=== PATIENT | female | born 1960 | race Caucasian/White ===

== ENCOUNTER 2018-10-07 09:43 | Emergency (ER) | payer MEDICARE, OTHER ==
[2018-10-07 09:55] VITALS: BP 134/84
--- NOTE | 2018-10-07 10:02 | UC ---
Lower Extremity/Ankle HPI - HPI Summary HPI Summary: 58 y/o female presents to the urgent care c/o 1 month hx of right leg swelling and discoloration with increased pain - History of Current Complaint Chief Complaint: UCLowerExtremity Stated Complaint: R LEG FLUID, TENDERNESS Time Seen by Provider: 10/07/18 10:01 Hx Obtained From: Patient Onset/Duration: Gradual Onset, Lasting Weeks - 4 weeks, Still Present Severity Initially: Mild Severity Currently: Moderate Pain Intensity: 9 Pain Scale Used: 0-10 Numeric Aggravating Factor(s): Standing, Ambulation Alleviating Factor(s): Rest, Elevation, OTC Meds Able to Bear Weight: Yes - Risk Factors Gout Risk Factors: Age Over 40, Diabetes, Hypertension DVT Risk Factors: Negative Septic Arthritis Risk Factor: Negative - Allergies/Home Medications Allergies/Adverse Reactions: Allergies Allergy/AdvReac Type Severity Reaction Status Date / Time ciprofloxacin [From Cipro] Allergy Hives Verified 10/07/18 09:56 Penicillins Allergy ink Verified 10/07/18 09:55 Home Medications: Home Medications Hydrocodone-Acetamin 7.5-300 1 tab PO DAILY 10/07/18 [History Confirmed 10/07/18 ] PMH/Surg Hx/FS Hx/Imm Hx Previously Healthy: Yes Endocrine History: Diabetes - PRE-DM type II Cardiovascular History: Hypertension GI/ History: Diverticulitis Other Neurological History: Vertigo - Surgical History Surgical History: Yes Surgery Procedure, Year, and Place: lap band,vein stripping,brst reduction - Family History Known Family History: Positive: Cardiac Disease Family History: Cancer - Social History Occupation: Unemployed Lives: With Family Alcohol Use: None Substance Use Type: None Smoking Status (MU): Heavy Every Day Tobacco Smoker Review of Systems All Other Systems Reviewed And Are Negative: Yes Constitutional: Positive: Negative Skin: Positive: Rash - RT lower leg w/ redness , warm to touch and painful w/ crusting yellowish discharge Eyes: Positive: Negative ENT: Positive: Negative Respiratory: Positive: Negative Cardiovascular: Positive: Negative Gastrointestinal: Positive: Negative Genitourinary: Positive: Negative Motor: Positive: Negative Neurovascular: Positive: Negative Musculoskeletal: Positive: Other: - RT lower leg pain s/p insect bite Neurological: Positive: Negative Psychological: Positive: Negative Is Patient Immunocompromised?: No Physical Exam - Summary Physical Exam Summary: Vital Signs Reviewed: Yes General: well developed, well nourished obese female sitting in the examining table w/o any apparent distress. Eyes: Positive: Conjunctiva Clear - PERRLA, EOMI ENT: Positive: Normal ENT inspection, Hearing grossly normal, Pharynx normal, TMs normal Neck: Positive: Supple, Nontender, No Lymphadenopathy Respiratory: Positive: Chest nontender, Lungs clear, Normal breath sounds Cardiovascular: Positive: RRR, No Murmur, Pulses Normal Abdomen Description: Positive: Nontender, No Organomegaly, Soft. Negative: CVA Tenderness (R), CVA Tenderness (L) Bowel Sounds: Positive: Present Musculoskeletal: Positive: Strength Intact, ROM Intact, No Edema Neurological Exam: Normal Psychological Exam: Normal Skin: Positive: rashes - RT ventral side of Rt forearm w/ erythematous patch w / indistinct borders, warm to touch, swelling and tender to palpation. Triage Information Reviewed: Yes Vital Signs: Initial Vital Signs Temp 96.7 F 10/07/18 09:50 Pulse 79 10/07/18 09:50 Resp 17 10/07/18 09:50 BP 134/84 10/07/18 09:50 Pulse Ox 97 10/07/18 09:50 Lower Extremity Course/Dx - Differential Dx/Diagnosis Differential Diagnosis/HQI/PQRI: Cellulitis, Compartment Syndrome, DVT, Infection, Osteomyelitis, Phlebitis, Sprain Provider Diagnosis: Cellulitis of right lower leg Discharge - Sign-Out/Discharge Documenting (check all that apply): Patient Departure - d/c home All imaging exams completed and their final reports reviewed: No Studies - Discharge Plan Condition: Stable Disposition: HOME Prescriptions: DOXYcycline CAP(*) [DOXYcycline 100MG CAP(*)] 100 mg PO BID #20 cap Mupirocin 2% OINT* [Bactroban 2 % Oint*] 1 applic TOPICAL BID #1 tube Patient Education Materials: Cellulitis (ED) Referrals: [facility] [Outside] - 2 Days Additional Instructions: 1-Please take full course of Antibiotic. 2- If redness and swelling doubles in size after 48 hrs of taking antibiotic and fever develops please go to the ER immediately. 3-Avoid standing for long periods of time, keep it elevated and keep wound clean and dry. Apply Bactroban oint as directed, 4-Please F/u with your PCP in 2-3 days to make sure lower leg is improving. - Billing Disposition and Condition Condition: STABLE Disposition: Home
== END 2018-10-07 10:42 | disposition home or self-care (01) ==
LOC: UCEAST 09:43
DX: L03.115 Cellulitis of right lower limb (principal); Z88.1 Allergy status to other antibiotic agents; Z88.0 Allergy status to penicillin; F17.200 Nicotine dependence, unspecified, uncomplicated
CPT/HCPCS: 99202; G0463

== ENCOUNTER 2018-12-28 14:06 | Inpatient (IN) | payer MEDICARE, OTHER ==
[2018-12-28 17:41] LABS: ABS Basophils 0.1 10^3/ul (0-0.2); ABS Eosinophils 0.1 10^3/ul (0-0.6); ABS Lymphocytes 2.4 10^3/ul (1.0-4.8); ABS Monocytes 0.7 10^3/ul (0-0.8); ABS Neutrophils 12.9 10^3/ul (1.5-7.7); ABS Nucleated RBC 0 10^3/ul; Eosinophil % 0.5 %; Hematocrit 46 % (35-47); Hemoglobin 15.3 g/dl (12.0-16.0); Lymphocyte % 14.9 %; Mean Corpuscular HGB Conc 34 g/dl (31-36); Mean Corpuscular Hemoglobin 31 pg (27-31); Mean Corpuscular Volume 92 fL (80-97); Mean Platelet Volume 7.6 fL (7.4-10.4); Nucleated Red Blood Cells % 0; Platelet Count 322 10^3/ul (150-450); Red Blood Count 4.94 10^6/ul (4.00-5.40); Red Cell Distribution Width 14 % (10.5-15); White Blood Count 16.2 10^3/ul (3.5-10.8)
[2018-12-28 17:54] LABS: Activated Partial Thrombo Time 34.1 seconds (26.0-36.3); INR 0.95 (0.77-1.02)
[2018-12-28 17:55] LABS: Albumin 4.3 g/dL (3.2-5.2); Albumin/Globulin Ratio 1.4 (1-3); BUN/Creatinine Ratio 17.7 (8-20); Calcium 9.7 mg/dL (8.6-10.3); EGFR African American 118.8 (>60); EGFR Non-African American 98.2 (>60); Potassium 4.3 mmol/L (3.5-5.0); Total Bilirubin 0.6 mg/dL (0.2-1.0); Total Protein 7.3 g/dL (6.4-8.9)
[2018-12-28 19:25] LABS: Urine Appearance Cloudy; Urine Bacteria Absent (Absent); Urine Bilirubin Negative (Negative); Urine Blood 2+ (Negative); Urine Color Yellow; Urine Glucose Negative (Negative); Urine Ketones Negative (Negative); Urine Nitrite Negative (Negative); Urine Protein Negative (Negative); Urine Red Blood Cell 3+(>10/hpf) (Absent); Urine Specific Gravity 1.023 (1.010-1.030); Urine Squamous Epithelial Cell Present (Absent); Urine Urobilinogen Negative (Negative); Urine White Blood Cell Trace(0-5/hpf) (Absent)
[2018-12-28] MEDS ORDERED: Morphine VIAL* 10 MG/ML 1 ML VIAL IV ONE ×2 (19:41→22:41)
[2018-12-28] MEDS ORDERED: Ondansetron INJ* 2 MG/ML VIAL IV ONE (19:41)
[2018-12-28] MEDS ORDERED: NS 0.9% 1000 ML** 1,000 ML IV ONE (19:41)
[2018-12-28] MEDS ORDERED: Iohexol 300* (CONTRAST) 10 ML SDV IV ONE (19:50)
[2018-12-28 20:01] LABS: C Reactive Protein 40.2 mg/L (<8.01)
--- NOTE | 2018-12-28 20:31 | ED ---
Abdominal Pain/Female - HPI Summary HPI Summary: Patient complains of new onset lower abdominal cramping, vaginal bleeding or blood in urine, nausea starting this a.m. Abdominal pain described as new onset , bilateral lower abdomen, constant, rated 9/10. Patient denies fever, cough, sore throat, SLOAN, CP, SOB, V/D, pain with urination, change in BM, vaginal pain or discharge. Medical history is diverticulitis, HTN, DDD, vertigo. Abdominal surgical history includes lap banding. - History of Current Complaint Chief Complaint: EDAbdPain Stated Complaint: ABD PAIN/VAG BLEEDING Time Seen by Provider: 12/28/18 18:11 Hx Obtained From: Patient Onset/Duration: Sudden Onset, Lasting Hours Timing: Constant Severity Initially: Severe Severity Currently: Moderate Pain Intensity: 9 Pain Scale Used: 0-10 Numeric Location: Discrete At: RLQ, Discrete At: LLQ, Suprapubic Radiates: No Character: Burning, Cramping Aggravating Factor(s): Nothing Alleviating Factor(s): Nothing Associated Signs and Symptoms: Positive: Vaginal Bleeding, Nausea Allergies/Adverse Reactions: Allergies Allergy/AdvReac Type Severity Reaction Status Date / Time ciprofloxacin [From Cipro] Allergy Hives Verified 10/07/18 09:56 Penicillins Allergy ink Verified 10/07/18 09:55 PMH/Surg Hx/FS Hx/Imm Hx Endocrine/Hematology History: Denies: Hx Diabetes Cardiovascular History: Denies: Hx Hypertension History: Denies: Hx Renal Disease Sensory History: Denies: Hx Eye Prosthesis Opthamlomology History: Denies: Hx Legally Blind EENT History: Denies: Hx Deafness Neurological History: Denies: Hx Dementia Psychiatric History: Denies: Hx Autism - Surgical History Surgery Procedure, Year, and Place: lap band,vein stripping,brst reduction Infectious Disease History: No Infectious Disease History: Denies: Traveled Outside the [place] in Last 30 Days - Family History Known Family History: Positive: Cardiac Disease Family History: Cancer - Social History Alcohol Use: None Substance Use Type: Reports: None Smoking Status (MU): Heavy Every Day Tobacco Smoker Review of Systems Constitutional: Negative Eyes: Negative ENT: Negative Cardiovascular: Negative Respiratory: Negative Positive: Abdominal Pain, Nausea Positive: hematuria Musculoskeletal: Negative Skin: Negative Neurological: Negative Psychological: Normal All Other Systems Reviewed And Are Negative: Yes Physical Exam - Summary Physical Exam Summary: Minimal pain with palpation of bilateral lower abdomen. Moderate pain with palpation of right upper quadrant, epigastrium and left upper quadrant. Physical exam otherwise unremarkable. Triage Information Reviewed: Yes Vital Signs On Initial Exam: Initial Vitals Temp Pulse Resp BP Pulse Ox 97.7 F 81 16 132/82 95 12/28/18 14:08 12/28/18 14:08 12/28/18 14:08 12/28/18 14:08 12/28/18 14:08 Vital Signs Reviewed: Yes Appearance: Positive: Well-Appearing Skin: Positive: Warm Head/Face: Positive: Normal Head/Face Inspection Eyes: Positive: Normal Neck: Positive: Supple Respiratory/Lung Sounds: Positive: Clear to Auscultation Cardiovascular: Positive: Normal Abdomen Description: Positive: Other: Musculoskeletal: Positive: Normal Neurological: Positive: Normal Psychiatric: Positive: Normal AVPU Assessment: Alert - Rhett Coma Scale Best Eye Response: 4 - Spontaneous Best Motor Response: 6 - Obeys Commands Best Verbal Response: 5 - Oriented Coma Scale Total: 15 Diagnostics - Vital Signs Vital Signs Temp Pulse Resp BP Pulse Ox 12/28/18 20:00 20 12/28/18 16:08 97 F 79 16 145/94 95 12/28/18 14:08 97.7 F 81 16 132/82 95 - Laboratory Lab Results: Lab Results 12/28/18 12/28/18 12/28/18 Range/Units 17:21 17:21 17:21 WBC 16.2 H (3.5-10.8) 10^3/ul RBC 4.94 (4.00-5.40) 10^6/ul Hgb 15.3 (12.0-16.0) g/dl Hct 46 (35-47) % MCV 92 (80-97) fL MCH 31 (27-31) pg MCHC 34 (31-36) g/dl RDW 14 (10.5-15) % Plt Count 322 (150-450) 10^3/ul MPV 7.6 (7.4-10.4) fL Neut % (Auto) 79.7 % Lymph % (Auto) 14.9 % Carver % (Auto) 4.5 % Eos % (Auto) 0.5 % Baso % (Auto) 0.4 % Absolute Neuts (auto) 12.9 H (1.5-7.7) 10^3/ul Absolute Lymphs (auto) 2.4 (1.0-4.8) 10^3/ul Absolute Monos (auto) 0.7 (0-0.8) 10^3/ul Absolute Eos (auto) 0.1 (0-0.6) 10^3/ul Absolute Basos (auto) 0.1 (0-0.2) 10^3/ul Absolute Nucleated RBC 0 10^3/ul Nucleated RBC % 0 INR (Anticoag Therapy) 0.95 (0.77-1.02) APTT 34.1 (26.0-36.3) seconds Sodium 136 (135-145) mmol/L Potassium 4.3 (3.5-5.0) mmol/L Chloride 97 L (101-111) mmol/L Carbon Dioxide 32 (22-32) mmol/L Anion Gap 7 (2-11) mmol/L BUN 11 (6-24) mg/dL Creatinine 0.62 (0.51-0.95) mg/dL Est GFR ( Amer) 118.8 (>60) Est GFR (Non-Af Amer) 98.2 (>60) BUN/Creatinine Ratio 17.7 (8-20) Glucose 132 H (70-100) mg/dL Lactic Acid (0.5-2.0) mmol/L Calcium 9.7 (8.6-10.3) mg/dL Total Bilirubin 0.60 (0.2-1.0) mg/dL AST 14 (13-39) U/L ALT 20 (7-52) U/L Alkaline Phosphatase 70 (34-104) U/L Troponin I 0.00 (<0.04) ng/mL C-Reactive Protein 40.20 H (<8.01) mg/L Total Protein 7.3 (6.4-8.9) g/dL Albumin 4.3 (3.2-5.2) g/dL Globulin 3.0 (2-4) g/dL Albumin/Globulin Ratio 1.4 (1-3) Lipase 11 (11.0-82.0) U/L Urine Color Urine Appearance Urine pH (5-9) Ur Specific Clyde (1.010-1.030) Urine Protein (Negative) Urine Ketones (Negative) Urine Blood (Negative) Urine Nitrate (Negative) Urine Bilirubin (Negative) Urine Urobilinogen (Negative) Ur Leukocyte Esterase (Negative) Urine WBC (Auto) (Absent) Urine RBC (Auto) (Absent) Ur Squamous Epith Cells (Absent) Urine Bacteria (Absent) Urine Glucose (Negative) 12/28/18 12/28/18 Range/Units 19:10 19:58 WBC (3.5-10.8) 10^3/ul RBC (4.00-5.40) 10^6/ul Hgb (12.0-16.0) g/dl Hct (35-47) % MCV (80-97) fL MCH (27-31) pg MCHC (31-36) g/dl RDW (10.5-15) % Plt Count (150-450) 10^3/ul MPV (7.4-10.4) fL Neut % (Auto) % Lymph % (Auto) % Carver % (Auto) % Eos % (Auto) % Baso % (Auto) % Absolute Neuts (auto) (1.5-7.7) 10^3/ul Absolute Lymphs (auto) (1.0-4.8) 10^3/ul Absolute Monos (auto) (0-0.8) 10^3/ul Absolute Eos (auto) (0-0.6) 10^3/ul Absolute Basos (auto) (0-0.2) 10^3/ul Absolute Nucleated RBC 10^3/ul Nucleated RBC % INR (Anticoag Therapy) (0.77-1.02) APTT (26.0-36.3) seconds Sodium (135-145) mmol/L Potassium (3.5-5.0) mmol/L Chloride (101-111) mmol/L Carbon Dioxide (22-32) mmol/L Anion Gap (2-11) mmol/L BUN (6-24) mg/dL Creatinine (0.51-0.95) mg/dL Est GFR ( Amer) (>60) Est GFR (Non-Af Amer) (>60) BUN/Creatinine Ratio (8-20) Glucose (70-100) mg/dL Lactic Acid 1.5 (0.5-2.0) mmol/L Calcium (8.6-10.3) mg/dL Total Bilirubin (0.2-1.0) mg/dL AST (13-39) U/L ALT (7-52) U/L Alkaline Phosphatase (34-104) U/L Troponin I (<0.04) ng/mL C-Reactive Protein (<8.01) mg/L Total Protein (6.4-8.9) g/dL Albumin (3.2-5.2) g/dL Globulin (2-4) g/dL Albumin/Globulin Ratio (1-3) Lipase (11.0-82.0) U/L Urine Color Yellow Urine Appearance Cloudy Urine pH 5.0 (5-9) Ur Specific Clyde 1.023 (1.010-1.030) Urine Protein Negative (Negative) Urine Ketones Negative (Negative) Urine Blood 2+ A (Negative) Urine Nitrate Negative (Negative) Urine Bilirubin Negative (Negative) Urine Urobilinogen Negative (Negative) Ur Leukocyte Esterase Negative (Negative) Urine WBC (Auto) Trace(0-5/hpf) (Absent) Urine RBC (Auto) 3+(>10/hpf) A (Absent) Ur Squamous Epith Cells Present A (Absent) Urine Bacteria Absent (Absent) Urine Glucose Negative (Negative) Result Diagrams: 12/28/18 17:21 12/28/18 17:21 Lab Statement: Any lab studies that have been ordered have been reviewed, and results considered in the medical decision making process. Abdominal Pain Fem Course/Dx - Course Course Of Treatment: Patient complains of new onset lower abdominal cramping, vaginal bleeding or blood in urine, nausea starting this a.m. Abdominal pain described as new onset, bilateral lower abdomen, constant, rated 9/10. Patient denies fever, cough, sore throat, SLOAN, CP, SOB, V/D, pain with urination, change in BM, vaginal pain or discharge. Medical history is diverticulitis, HTN, DDD, vertigo. Abdominal surgical history includes lap banding. Physical exam: Minimal pain with palpation of bilateral lower abdomen. Moderate pain with palpation of right upper quadrant, epigastrium and left upper quadrant. Physical exam otherwise unremarkable. Vital signs within normal limits. WBC 16.2. CRP 40. Labs otherwise unremarkable. Pain and nausea controlled with morphine 4 mg IV and Zofran [address] abdomen and pelvis was positive for appendicitis. Admitted to Dr. Cruz. - Diagnoses Provider Diagnoses: Appendicitis Discharge - Sign-Out/Discharge Documenting (check all that apply): Patient Departure Patient Received Moderate/Deep Sedation with Procedure: No - Discharge Plan Condition: Stable Disposition: HOME Referrals: Ana Maria Victoria MD [Primary Care Provider] - - Billing Disposition and Condition Condition: STABLE Disposition: Home
[2018-12-28] MEDS ORDERED: oxyCODONE TAB* 5 MG TAB PO ONE (21:25)
[2018-12-28] MEDS ORDERED: Piperacillin/Tazobac ADVAN(*) 3.375 GM in NS 0.9% 100 ML* 100 ML IVPB ONE (22:41)
[2018-12-28] MEDS ORDERED: Acetaminophen TAB* 325 MG ONE (23:41)
[2018-12-28] MEDS: Acetaminophen TAB* 325 MG PO PRN (23:42)
[2018-12-29] MEDS: NS 0.9% 1000 ML** 1,000 ML IV SCH ×2 (00:27→21:32)
[2018-12-29] MEDS: Piperacillin/Tazobac ADVAN(*) 3.375 GM in NS 0.9% 100 ML* 100 ML IVPB SCH ×3 (03:11→21:31)
[2018-12-29] MEDS: Morphine VIAL* 4 MG/ML VIAL (1 ml vial) IV PRN ×3 (05:14→08:11)
[2018-12-29] MEDS: Ondansetron INJ* 2 MG/ML VIAL IV PRN (05:20)
[2018-12-29] MEDS ORDERED: Albuterol/Ipratropium NEB.SOL* Albuterol 2.5 MG/Ipratropium 0.5 MG 3 ML INH PRN (08:31)
[2018-12-29] MEDS ORDERED: PROCHLORPERAZINE INJ 5 MG/ML 2 ML VIAL IV PRN (09:00)
[2018-12-29] MEDS ORDERED: oxyCODONE/Acetamin 5/325 MG* TAB PO PRN (09:00)
[2018-12-29] MEDS ORDERED: fentaNYL* 50 MCG/ML 2 ML VIAL (100 MCG VIAL) IV PRN (09:00)
[2018-12-29] MEDS ORDERED: Naloxone* 0.4 MG/ML 1 ML VIAL IV PRN (09:00)
[2018-12-29] MEDS ORDERED: HYDROcodone/ACETAMIN 5-325 MG* 1 TAB PO PRN (09:00)
--- NOTE | 2018-12-29 10:11 | HP ---
CC: Dr. Ana Maria Victoria at the [facility] at [facility], Primary [facility].* HISTORY AND PHYSICAL ADMISSION: DATE OF ADMISSION: 12/29/18 REASON FOR ADMISSION: Right lower quadrant abdominal pain and acute appendicitis. HISTORY OF PRESENT ILLNESS: Ms. Samantha Morris is a morbidly obese 58-year-old woman who yesterday morning developed some generalized abdominal discomfort associated with some nausea. She had no vomiting. She was anorexic over the course of the day, and only ate a banana. Throughout the day, the pain became more localized in the lower abdominal and subsequently to the right lower quadrant. She presented to the emergency room last evening. Here she was noted to be afebrile, but did develop a temperature up to a 101. She is hemodynamically stable. Laboratory workup included a white blood cell count of 16,000 with a normal hemoglobin. She had an elevated C-reactive protein of 40. The rest of her electrolytes, BUN and creatinine, and lactic acid were normal. Her workup included a CT scan of the abdomen and pelvis. I did review these images. These show what appears to be a primary fat containing umbilical hernia. In addition, there are findings consistent with acute appendicitis with a thickened, dilated appendix in the right lower quadrant with some periappendiceal inflammation. There was no evidence of extraluminal air, abscess, or fluid to suggest perforation. She was admitted to the surgical service for further care. Also of note, is that the patient has undergone a laparoscopic gastric band placement, but positioning appeared to be adequate. PAST MEDICAL HISTORY: 1. Morbid obesity. 2. Tobacco abuse. 3. Hypertension. 4. Sleep apnea. PAST SURGICAL HISTORY: Laparoscopic band placement, and two bilateral reduction mammoplasties. MEDICATIONS: Include: 1. Lisinopril/HCTZ 20/12.5 one tablet p.o. daily. 2. Effexor 150 mg daily. 3. Vicodin 1 tab p.o. 4 times a day for back pain. ALLERGIES: She is allergic to CIPROFLOXACIN. She was told as a young person that she was allergic to PENICILLIN, is not sure of the reaction. SOCIAL HISTORY: She lives alone in [place]. She smokes about a pack of cigarettes per day. She does not drink alcohol. She is disabled and presently not working. REVIEW OF SYSTEMS: Cerebrovascular: She give no history of CVA or headaches. Cardiovascular: No chest pain, although she does have some shortness of breath. Pulmonary: Occasional wheezing. She is a smoker. She has sleep apnea. GI: No chronic abdominal discomfort. She has had no change in her bowel habits. : No urgency or hematuria. PHYSICAL EXAMINATION GENERAL: She is a morbidly obese woman, sitting up right in the chair. She is awake, alert, conversive, and quite pleasant. VITAL SIGNS: Temperature 98.6, pulse 86, blood pressure 120/68. HEENT: Oral mucosa is slightly dry. LUNGS: With diminished breath sounds throughout, especially at the bases. She has a few expiratory wheezes. There is no rales or crackles. HEART: Regular rate and rhythm with murmurs, rubs, or gallops. ABDOMEN: Soft, but distended. She is obese. There is a palpable subcutaneous port in the left upper quadrant for the Lap Band. There also appears to be an umbilical or supraumbilical hernia, which is nonreducible and mildly tender. She has tenderness in the right lower quadrant with some voluntary guarding. There is no generalized peritonitis. PSYCHIATRIC: She is awake, alert, and oriented x3. She has normal judgement and insight. IMPRESSION: 1. Acute appendicitis by CT scan. 2. Morbid obesity. 3. Sleep apnea. 4. Hypertension. 5. Tobacco abuse. PLAN: The patient has been admitted to the surgical service for treatment of her acute appendicitis. 1. Laparoscopic appendectomy later this morning. 2. She has been started on IV Zosyn. 3. She will be kept n.p.o. 4. IV fluids have been started. 5. EKG will be obtained. 6. Medical consultation will be obtained this morning for evaluation and optimization of her medical conditions pre and postoperatively. She will most likely require postoperative admission to the hospital due to her associated medical conditions and size and expected postoperative prolonged care. Procedure was discussed with the patient and the risks, but not limited to bleeding, infection, intraabdominal abscess formation, injury to peritoneal and retroperitoneal structures, abscess formation, infection of the existing gastric band necessitating removal in the future, the possibility of an open procedure, placement of a drain, the risks of anesthesia, deep vein thrombosis, and postoperative hospital stays and recovery times were discussed. [id number]/CPS #: [id number] JUAN
[2018-12-29] MEDS ORDERED: Famotidine IV* 10 MG/ML 2 ML (20 mg) ONE (10:32)
[2018-12-29] MEDS ORDERED: fentaNYL* 50 MCG/ML 2 ML VIAL (100 MCG VIAL) ONE ×5 (10:45→15:00)
[2018-12-29] MEDS ORDERED: Midazolam* 1 MG/ML 5 ML VIAL (5 MG) ONE (10:45)
[2018-12-29] MEDS ORDERED: Propofol* 10 MG/ML 20 ML BTL ONE (10:45)
[2018-12-29] MEDS ORDERED: Rocuronium* 10 MG/ML VIAL ONE ×2 (10:46→13:45)
[2018-12-29] MEDS ORDERED: Lidocaine 2% PF * 5 ML VIAL ONE (10:46)
[2018-12-29] MEDS ORDERED: Bupivacaine 0.5% W/EPI SDV* 30 ML VIAL ONE (11:46)
[2018-12-29] MEDS ORDERED: Famotidine IV* 10 MG/ML 2 ML (20 mg) IV SLOW PU ONE (11:59)
[2018-12-29] MEDS ORDERED: Succinylcholine* 20 MG/ML 10 ML VIAL ONE (12:03)
[2018-12-29] MEDS ORDERED: Phenylephrine IV* 40 MCG/ML 10 ML SYRINGE ONE (12:42)
[2018-12-29] MEDS ORDERED: EPHEDrine (Pressors)* 50 MG/ML VIAL ONE (12:49)
--- NOTE | 2018-12-29 14:04 | CONS ---
CONSULTATION REPORT: DATE OF CONSULT: 12/29/18 REASON FOR CONSULT: Perioperative medical management. CHIEF COMPLAINT: Abdominal pain. HISTORY OF PRESENT ILLNESS: This is a 58-year-old female with history of morbid obesity, obstructive sleep apnea, tobacco abuse and hypertension who presented to the emergency department yesterday with right lower quadrant pain and was found to have acute appendicitis. She was admitted to the surgical team and they have a plan to take her to the operating room today, 12/29/18. We were asked to see her for a medical management perioperatively. Regarding her functional capacity, Ms. Morris admits that she occasionally gets short of breath climbing a flight of stairs, but she is able to do so without stopping. She thinks the reason is because "I need to stop smoking." She is able to walk a city block without stopping. She never gets chest pain unless she eats pepperoni. She never gets chest pain with exertion. She has never had an episode of syncope. She has no chest pain at this time. She has no shortness of breath. I saw her in the PACU and she complained of ongoing right lower quadrant pain and feeling ill from not sleeping and eating for 2 days. She is not sure if she has ever had an echocardiogram. She thinks she had a stress test 3 years ago in [place] which was negative. PAST MEDICAL HISTORY: She had a lap band years ago. She has hypertension; obstructive sleep apnea, on CPAP, but she does not know her setting; and she continues to smoke tobacco. 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 She lives in [place]. She smokes one pack per day for the past 30 years. She does not drink alcohol. Her healthcare proxy is her friend, Mickie. REVIEW OF SYSTEMS: She denies syncope, chest pain, palpitations, shortness of breath, orthopnea, headache. She does endorse nausea, abdominal pain and fatigue. PHYSICAL EXAM: Temperature 99.0, heart rate 107, respiratory rate 22, pulse ox 94% on 2 L, blood pressure 158/92. General: Alert, obese female, in no distress. HEENT: Pupils are 2 mm bilaterally and reactive to light. Oral mucosa is very dry. Neck is obese, I am unable to evaluate for JVP due to her neck crepitus. Chest: She is in a regular rate and rhythm with no murmurs. Her lungs are clear anteriorly, she refuses to sit up or roll to the side for me to listen posteriorly due to abdominal pain. Her abdomen is obese and distended. She has an umbilical reducible hernia. She has right lower quadrant tenderness to light and deep palpation and right upper quadrant tenderness to deep palpation with guarding. Extremities: No edema, rashes or ulcers. Neurologic: Her strength is 5/5 in all extremities. She is oriented x3 and appropriate in her cognition. DIAGNOSTIC STUDIES/LAB DATA: White blood cells 16.2, hemoglobin 15.3, platelets 322. INR 0.95. Sodium 136, potassium 4.3, chloride 97, creatinine 0.62, glucose 132, lactic acid 1.5. Troponin 0.00. Lipase 0. Abdomen and pelvis CT from 12/28/18, shows acute appendicitis, moderate adjacent right lower quadrant inflammation. No abscess formation. No free air. No bowel obstruction and a previous gastric lap band procedure with diverticulosis. EKG from this morning, shows normal sinus rhythm, normal axis, normal intervals. No chamber hypertrophy. She has a Q-wave in lead III. She has T- wave inversions in V2, V3, V4 and T-wave flattening in V5 and V6. I have received an old EKG from [facility] which shows unchanged T-wave inversions across the precordium and a Q-wave in lead III as well. In summary, her EKG today is unchanged from an EKG from [facility] from 2013. ASSESSMENT AND PLAN: This is a 58-year-old female with history of obstructive sleep apnea, hypertension, morbid obesity and tobacco use, who presented to the emergency department yesterday with abdominal pain and was found to have acute appendicitis. 1. Perioperative risk evaluation. We ruled out acute coronary syndrome with her EKG which is unchanged from prior EKG. She also had a negative troponin yesterday. She has no chest pain or anginal equivalent at this time. Her RCRI gives her a 1 point, which is below average risk for major adverse cardiac events; however, her NSQIP results in a 0.3% risk for major adverse cardiac events which is slightly above average at 0.2%. However, unfortunately her risk factors including obesity, tobacco use, and SIRS are not modifiable preoperatively and this procedure is urgent, so I would recommend no further cardiac testing preoperatively. I have also received a stress test from [facility] which shows a negative stress test in 2014, this is unrevealing since it was 5 years ago but it is the most recent cardiac evaluation that she has had. We will continue to follow her postoperatively. 2. Obstructive sleep apnea. I would suspect she may need some BiPAP postoperatively after anesthesia, I will defer to Anesthesia for this. I am ordering her CPAP for nighttime. 3. Acute appendicitis. She is on Zosyn and has received volume resuscitation. She is hemodynamically stable. I agree with this management. 4. History of hypertension. Her lisinopril and HCTZ are on hold, this is appropriate in the perioperative period. 5. DVT prophylaxis. I would consider adding subcu heparin if comfortable postoperatively. Thank you for allowing me to participate in the care of this patient. Please call me with any questions or concerns. [id number]/CPS #: [id number] JUAN
[2018-12-29] MEDS ORDERED: Sugammadex * 200 MG/2 ML VIAL IV PUSH ONE (14:48)
[2018-12-29] MEDS ORDERED: Ondansetron INJ* 2 MG/ML VIAL ONE (14:53)
--- NOTE | 2018-12-29 15:06 | BRIEFOPN ---
Brief Operative Note - Surgery Procedures: Procedures OPERATIVE REPORT Pre-op: Acute appendicitis Post-Op: Acute perforated appendicitis with purulent peritonitis, umbilical hernia Procedure:Open appendectomy (after attempted laparoscopic appendectomy) and repair of umbilical hernia Surgeon: MD Nancy Asst: Peck. FOWLER Anes: general with local , Dr. Singleton IVF:2700 cc crystalloid EBL:100 cc Specimen: Appendix Drain: #10 WILIAM Wound: 4 To PACU
[2018-12-29] MEDS ORDERED: Acetaminophen IV 1GM/100ML * 1,000 MG/100 ML VIAL IVPB ONE (15:43)
[2018-12-29] MEDS ORDERED: Ketorolac INJ* 15 MG/ML 1 ML VIAL IV PUSH ONE (15:43)
[2018-12-29] MEDS ORDERED: Acetaminophen IV 1GM/100ML * 100 ML ONE (15:48)
[2018-12-29] MEDS ORDERED: Ketorolac INJ* 30 MG/ML 1 ML VIAL ONE (15:49)
[2018-12-29] MEDS ORDERED: Morphine PCA ADULT* 5 MG/ML 30 ML ONE (16:32)
[2018-12-29] MEDS ORDERED: Naloxone* 0.4 MG/ML 1 ML VIAL IV PUSH PRN (17:47)
[2018-12-29] MEDS ORDERED: NS 0.9% 1000 ML** 1,000 ML IVPB SCH (17:48)
[2018-12-29] MEDS ORDERED: Morphine PCA* 150 MG in PREMIX PCA SCH (18:00)
--- NOTE | 2018-12-29 20:03 | OP ---
CC: Dr. Victoria, [facility] * DATE OF OPERATION: 12/29/18 - ROOM #341 DATE OF : 56 SURGEON: Don Cruz MD MANAGER SECONDARY: JANETH Mesa ANESTHESIOLOGIST: Dr. Singleton. ANESTHESIA: General with local. PRE-OP DIAGNOSIS: Acute appendicitis. POST-OP DIAGNOSES: 1. Acute perforated appendicitis with purulent peritonitis. 2. Umbilical hernia. OPERATIVE PROCEDURE: 1. Open appendectomy (after attempted laparoscopic appendectomy). 2. Open primary repair of umbilical hernia. ESTIMATED BLOOD LOSS: 100 cc. IV FLUIDS: 1500 cc of crystalloid. URINE OUTPUT: Not recorded. SPECIMEN: Appendix. WOUND CLASSIFICATION: IV. DRAINS: #10 WILIAM drain in the right lower quadrant. FINDINGS: The patient had perforated appendix with significant inflammatory response with purulent peritonitis mainly in the right lower quadrant of the abdomen. Due to her size and the amount of inflammation laterally, the procedure was not able to be performed with the laparoscope and this was converted to an open appendectomy. BRIEF HISTORY: Ms. Samantha Morris is a 58-year-old woman presented to the emergency room with 12 to 16 hours of lower abdominal pain. She was noted to have a leukocytosis and a CT scan, which showed acute appendicitis without evidence of abscess, extraluminal air or fluid to suggest perforation. She was admitted to the surgical service and was started on IV antibiotics and kept n.p.o. After appropriate medical consultation, she is being taken to the operating room for an appendectomy. The procedure was discussed with the patient, the risks, but were not limited to bleeding, infection, intraabdominal abscess formation, injury to peritoneal and retroperitoneal structures, possibility of an open procedure, the possibility of infection over her existing lap gastric band, the risks of general anesthesia were all explained. DESCRIPTION OF PROCEDURE: Written informed consent was obtained, the abdomen was marked with indelible ink and preoperative antibiotics were administered. The patient was taken to the operative room and placed in the supine position. Sequential compression devices and a warming blanket were applied. The patient was intubated and anesthesia was administered. The abdomen was prepped and draped in usual sterile fashion. Time-out verification was completed. Initially, a small vertical incision was made just above the umbilicus at the midline and the peritoneal cavity was entered under direct vision. A 12 mm blunt port was inserted and the abdomen was insufflated to 15 mmHg. Upon placing the scope, it was apparent that there was a fat containing incarcerated umbilical hernia. I placed a 5-mm port in the left lower quadrant of the abdomen under direct vision. A second 5-mm port was placed in the right upper quadrant of the abdomen. Initially, I did not feel that I needed to reduce the umbilical hernia which contained omentum and I was able to identify the inflammatory process in the right lower quadrant. There was a significant purulent peritonitis mainly in the right lower quadrant with a bowel that was adherent to the anterior abdominal wall and to each other. Using some blunt dissection, I was able to free up the terminal ileum as it entered the cecum. The cecum was quite distended as was the rest of the bowel and also due to her size that it was a difficult visualizing the lateral abdominal wall to identify the appendix which was difficult to see apparently due to the inflammatory response mainly more laterally and more posterior toward the retroperitoneum. A third 5 mm port was placed in the suprapubic position as we attempted to try to obtain some exposure; however, after multiple attempts at retraction as well as severe different positional attempts, I made a decision to convert to an open procedure as I felt that this was not able to be completed with the laparoscope. Next, a vertical incision was made above the umbilicus and extending down below the umbilicus. The omental fat which was incarcerated up in through the umbilical hernia was then reduced. With proper positioning and appropriate retraction, I was able to identify a severely inflamed indurated appendix, which was retroperitoneal as well as peritoneal and this was bluntly dissected free from the surrounding abdominal wall and retroperitoneum and brought up into view. The mesoappendix was taken sequentially with the LigaSure device. It was evident that there was a small perforation of the proximal third of the appendix and at this point, a right angle clamp was placed at the base of the appendix and this was amputated. A 2-0 silk LigaSure was then placed to tie the appendiceal stump close. Two separate 2-0 silk sutures were then used to invert the appendiceal stump into the cecum as the cecum although mildly inflamed was soft and pliable and held stitches well. Hemostasis was then assured. The right lower quadrant and the remainder of the abdomen was thoroughly irrigated with saline until it was clear as possible. Care was made to identify the terminal ileum and make sure there were no injuries, which there were none. All laparotomy, sponge and needle counts were reported as correct. Next, the hernia sac centered around the umbilicus was then excised with subcutaneous tissue and some of the scar tissue was debrided back to healthy fascia mainly inferiorly. I did undermine anteriorly laterally on both sides to release the fascia to decrease tension on the repair. The midline fascia was then closed with interrupted #1 Vicryl suture. Prior to this, #10 WILIAM drain was placed in the right lower quadrant and extending down in the pelvis and brought up through a separate stab wound in the right lower abdominal wall. This was sutured to the skin with 3-0 Prolene suture. The wound was then packed with a moist gauze and loosely stapled. Dry sterile dressings were applied. The patient tolerated the procedure well, was taken to the recovery room in stable condition. [id number]/[facility] #: [id number] JUAN
[2018-12-29] MEDS: Famotidine IV* 10 MG/ML 2 ML (20 mg) IV SCH (21:01)
[2018-12-29] MEDS: Heparin VIAL(*) 5000 UNITS/ML VIAL (FIVE THOUSAND) SUBCUT SCH (21:51)
[2018-12-30] MEDS: Piperacillin/Tazobac ADVAN(*) 3.375 GM in NS 0.9% 100 ML* 100 ML IVPB SCH ×4 (03:27→23:09)
[2018-12-30] MEDS: Heparin VIAL(*) 5000 UNITS/ML VIAL (FIVE THOUSAND) SUBCUT SCH ×3 (05:06→22:01)
[2018-12-30] MEDS: Famotidine IV* 10 MG/ML 2 ML (20 mg) IV SCH ×2 (05:08→17:40)
[2018-12-30] MEDS: NS 0.9% 1000 ML** 1,000 ML IV SCH ×2 (05:10→21:47)
[2018-12-30 06:57] LABS: Hematocrit 45 % (35-47); Hemoglobin 13.8 g/dl (12.0-16.0); Mean Corpuscular HGB Conc 31 g/dl (31-36); Mean Corpuscular Hemoglobin 31 pg (27-31); Mean Corpuscular Volume 100 fL (80-97); Platelet Count 179 10^3/ul (150-450); Red Blood Count 4.52 10^6/ul (4.00-5.40); Red Cell Distribution Width 16 % (10.5-15); White Blood Count 14.1 10^3/ul (3.5-10.8)
[2018-12-30 07:09] LABS: CO2 Carbon Dioxide 24 mmol/L (22-32); Calcium 8.3 mg/dL (8.6-10.3); Chloride 105 mmol/L (101-111); Sodium 137 mmol/L (135-145)
[2018-12-30 07:14] LABS: BUN/Creatinine Ratio 16.9 (8-20); Blood Urea Nitrogen 10 mg/dL (6-24); EGFR African American 125.8 (>60); Glucose 110 mg/dL (70-100)
[2018-12-30 08:00] LABS: Anion Gap 8 mmol/L (2-11)
[2018-12-30] MEDS ORDERED: Rocuronium* 10 MG/ML VIAL ONE ×2 (10:47→11:40)
[2018-12-30] MEDS ORDERED: fentaNYL* 50 MCG/ML 5 ML VIAL (250 MCG VIAL) ONE (10:47)
[2018-12-30] MEDS ORDERED: Midazolam* 1 MG/ML 2 ML VIAL (2 MG) ONE ×2 (10:47→11:38)
[2018-12-30] MEDS ORDERED: Lidocaine 2% PF * 5 ML VIAL ONE ×2 (10:47→11:34)
[2018-12-30] MEDS ORDERED: Famotidine IV* 10 MG/ML 2 ML (20 mg) ONE (11:17)
[2018-12-30] MEDS ORDERED: Famotidine IV* 10 MG/ML 2 ML (20 mg) IV SLOW PU ONE (11:24)
[2018-12-30] MEDS ORDERED: Ketorolac INJ* 30 MG/ML 1 ML VIAL IV PRN (11:25)
[2018-12-30] MEDS ORDERED: fentaNYL* 50 MCG/ML 2 ML VIAL (100 MCG VIAL) IV PRN (11:25)
[2018-12-30] MEDS ORDERED: DiMENhydriNATE IV* 50 MG/ML VIAL IV PUSH PRN (11:25)
[2018-12-30] MEDS ORDERED: Acetaminophen IV 1GM/100ML * 1,000 MG/100 ML VIAL IVPB ONE (11:25)
[2018-12-30] MEDS ORDERED: Naloxone* 0.4 MG/ML 1 ML VIAL IV PRN (11:25)
[2018-12-30] MEDS ORDERED: KETAMINE HCL* 50 MG/ML 10 ML VIAL ONE (11:34)
[2018-12-30] MEDS ORDERED: Propofol* 10 MG/ML 20 ML BTL ONE ×2 (11:34)
[2018-12-30] MEDS ORDERED: Succinylcholine* 20 MG/ML 10 ML VIAL ONE (11:34)
[2018-12-30] MEDS ORDERED: fentaNYL* 50 MCG/ML 2 ML VIAL (100 MCG VIAL) ONE ×2 (11:41→14:06)
[2018-12-30] MEDS ORDERED: Bupivacaine 0.25% SDV PF* 10 ML VIAL INJ ONE (11:46)
[2018-12-30] MEDS ORDERED: Phenylephrine IV* 40 MCG/ML 10 ML SYRINGE ONE (11:54)
[2018-12-30] MEDS ORDERED: EPHEDrine (Pressors)* 50 MG/ML VIAL ONE (12:08)
[2018-12-30] MEDS ORDERED: Sugammadex * 200 MG/2 ML VIAL IV PUSH ONE (13:22)
--- NOTE | 2018-12-30 13:42 | BRIEFOPN ---
Brief Operative Note - Surgery Procedures: Procedures OPERATIVE REPORT Pre-op: Fascial dehiscence with evisceration s/p open appendectomy Post-Op: Same Procedure:Abdominal wall closure Surgeon: MD Nancy Asst: JANETH Aguilera Anes: general with Dr. Singleton IVF:1500 cc crystalloid EBL:min Specimen: none Drain: none Wound: 3 To PACU
[2018-12-30] MEDS ORDERED: Acetaminophen IV 1GM/100ML * 100 ML ONE (14:06)
[2018-12-30] MEDS ORDERED: Ketorolac INJ* 30 MG/ML 1 ML VIAL ONE (14:06)
--- NOTE | 2018-12-30 17:18 | PN ---
Subjective Date of Service: 12/30/18 Interval History: Pt c/o abd "soreness" after the surgery today Had to go back to OR for wound dehiscence Objective Active Medications: Acetaminophen (Tylenol Tab*) 650 mg PO Q6H PRN PRN Reason: FEVER Last Admin: 12/28/18 23:42 Dose: 650 mg Albuterol/Ipratropium (Duoneb (Albuterol 2.5 Mg/Ipratropium 0.5 Mg)) 1 neb INH Q4H PRN PRN Reason: SOB/WHEEZING Famotidine (Pepcid Iv*) 20 mg IV Q12H YEN Last Admin: 12/30/18 05:08 Dose: 20 mg Heparin Sodium (Porcine) (Heparin Vial(*)) 5,000 units SUBCUT Q8H YEN Last Admin: 12/30/18 15:09 Dose: 5,000 units Morphine Sulfate (Morphine Automation Test Developer Adult* 5 Mg/Ml) 30 mls @ 0 mls/hr DIELECTRIC TESTING MACHINE OPERATOR .Q24H YEN ; Protocol Last Admin: 12/29/18 18:10 Dose: 1 mls/hr Sodium Chloride (Ns 0.9% 1000 Ml) 1,000 mls @ 30 mls/hr IVPB .Q24H YEN Piperacillin Sod/Tazobactam (Sod 3.375 gm/ Sodium Chloride) 100 mls @ 200 mls/ hr IVPB Q6H YEN Ketorolac Tromethamine (Toradol Inj*) 30 mg IV Q6H PRN PRN Reason: PAIN Stop: 01/04/19 17:46 Naloxone HCl (Narcan*) 0.08 mg IV PUSH Q2M PRN PRN Reason: SEDATION Ondansetron HCl (Zofran Inj*) 4 mg IV Q6H PRN PRN Reason: NAUSEA Last Admin: 12/29/18 05:20 Dose: 4 mg Vital Signs - 8 hr 12/30/18 12/30/18 12/30/18 10:43 13:45 13:51 Temperature 97.7 F Pulse Rate 93 103 104 Respiratory 20 27 24 Rate Blood Pressure 98/60 117/71 124/72 (mmHg) O2 Sat by Pulse 98 91 90 Oximetry 12/30/18 12/30/18 12/30/18 13:56 14:01 14:16 Temperature Pulse Rate 106 109 107 Respiratory 23 27 21 Rate Blood Pressure 127/69 137/80 114/69 (mmHg) O2 Sat by Pulse 95 95 95 Oximetry 12/30/18 12/30/18 12/30/18 14:31 15:00 15:03 Temperature 98.5 F Pulse Rate 103 95 Respiratory 21 16 16 Rate Blood Pressure 130/84 130/66 (mmHg) O2 Sat by Pulse 95 96 96 Oximetry 12/30/18 12/30/18 12/30/18 15:30 15:38 16:01 Temperature 98.5 F 98.8 F Pulse Rate 95 92 Respiratory 16 18 Rate Blood Pressure 130/66 127/71 (mmHg) O2 Sat by Pulse 96 96 93 Oximetry 12/30/18 16:56 Temperature Pulse Rate Respiratory 18 Rate Blood Pressure (mmHg) O2 Sat by Pulse 95 Oximetry Oxygen Devices in Use Now: Nasal Cannula Appearance: 58 yo f in nAD, aAOx3 Eyes: No Scleral Icterus, PERRLA Ears/Nose/Mouth/Throat: NL Teeth, Lips, Gums, Mucous Membranes Moist Neck: NL Appearance and Movements; NL JVP, Trachea Midline Respiratory: Symmetrical Chest Expansion and Respiratory Effort, - - scattered rhonchi b/l [place] lungs , clear with cough Cardiovascular: NL Sounds; No Murmurs; No JVD Abdominal: - - large, distended, BS hypoactive, RLQ abd wound in post op dressings-not uncovered during exam, WILIAM drain in place Lymphatic: No Cervical Adenopathy Extremities: No Edema, No Clubbing, Cyanosis Skin: No Nodules or Sclerosis Neurological: Alert and Oriented x 3, NL Muscle Strength and Tone Result Diagrams: 12/30/18 06:40 12/30/18 08:23 Additional Lab and Data: Lab Results 12/28/18 12/28/18 12/28/18 Range/Units 17:21 17:21 17:21 WBC 16.2 H (3.5-10.8) 10^3/ul RBC 4.94 (4.00-5.40) 10^6/ul Hgb 15.3 (12.0-16.0) g/dl Hct 46 (35-47) % MCV 92 (80-97) fL MCH 31 (27-31) pg MCHC 34 (31-36) g/dl RDW 14 (10.5-15) % Plt Count 322 (150-450) 10^3/ul MPV 7.6 (7.4-10.4) fL Neut % (Auto) 79.7 % Lymph % (Auto) 14.9 % [place] % (Auto) 4.5 % Eos % (Auto) 0.5 % Baso % (Auto) 0.4 % Absolute Neuts (auto) 12.9 H (1.5-7.7) 10^3/ul Absolute Lymphs (auto) 2.4 (1.0-4.8) 10^3/ul Absolute Monos (auto) 0.7 (0-0.8) 10^3/ul Absolute Eos (auto) 0.1 (0-0.6) 10^3/ul Absolute Basos (auto) 0.1 (0-0.2) 10^3/ul Absolute Nucleated RBC 0 10^3/ul Nucleated RBC % 0 INR (Anticoag Therapy) 0.95 (0.77-1.02) APTT 34.1 (26.0-36.3) seconds Sodium 136 (135-145) mmol/L Potassium 4.3 (3.5-5.0) mmol/L Chloride 97 L (101-111) mmol/L Carbon Dioxide 32 (22-32) mmol/L Anion Gap 7 (2-11) mmol/L BUN 11 (6-24) mg/dL Creatinine 0.62 (0.51-0.95) mg/dL Est GFR ( Amer) 118.8 (>60) Est GFR (Non-Af Amer) 98.2 (>60) BUN/Creatinine Ratio 17.7 (8-20) Glucose 132 H (70-100) mg/dL Lactic Acid (0.5-2.0) mmol/L Calcium 9.7 (8.6-10.3) mg/dL Total Bilirubin 0.60 (0.2-1.0) mg/dL AST 14 (13-39) U/L ALT 20 (7-52) U/L Alkaline Phosphatase 70 (34-104) U/L Troponin I 0.00 (<0.04) ng/mL C-Reactive Protein 40.20 H (<8.01) mg/L Total Protein 7.3 (6.4-8.9) g/dL Albumin 4.3 (3.2-5.2) g/dL Globulin 3.0 (2-4) g/dL Albumin/Globulin Ratio 1.4 (1-3) Lipase 11 (11.0-82.0) U/L Urine Color Urine Appearance Urine pH (5-9) Ur Specific Vincent (1.010-1.030) Urine Protein (Negative) Urine Ketones (Negative) Urine Blood (Negative) Urine Nitrate (Negative) Urine Bilirubin (Negative) Urine Urobilinogen (Negative) Ur Leukocyte Esterase (Negative) Urine WBC (Auto) (Absent) Urine RBC (Auto) (Absent) Ur Squamous Epith Cells (Absent) Urine Bacteria (Absent) Urine Glucose (Negative) 12/28/18 12/28/18 Range/Units 19:10 19:58 WBC (3.5-10.8) 10^3/ul RBC (4.00-5.40) 10^6/ul Hgb (12.0-16.0) g/dl Hct (35-47) % MCV (80-97) fL MCH (27-31) pg MCHC (31-36) g/dl RDW (10.5-15) % Plt Count (150-450) 10^3/ul MPV (7.4-10.4) fL Neut % (Auto) % Lymph % (Auto) % [place] % (Auto) % Eos % (Auto) % Baso % (Auto) % Absolute Neuts (auto) (1.5-7.7) 10^3/ul Absolute Lymphs (auto) (1.0-4.8) 10^3/ul Absolute Monos (auto) (0-0.8) 10^3/ul Absolute Eos (auto) (0-0.6) 10^3/ul Absolute Basos (auto) (0-0.2) 10^3/ul Absolute Nucleated RBC 10^3/ul Nucleated RBC % INR (Anticoag Therapy) (0.77-1.02) APTT (26.0-36.3) seconds Sodium (135-145) mmol/L Potassium (3.5-5.0) mmol/L Chloride (101-111) mmol/L Carbon Dioxide (22-32) mmol/L Anion Gap (2-11) mmol/L BUN (6-24) mg/dL Creatinine (0.51-0.95) mg/dL Est GFR ( Amer) (>60) Est GFR (Non-Af Amer) (>60) BUN/Creatinine Ratio (8-20) Glucose (70-100) mg/dL Lactic Acid 1.5 (0.5-2.0) mmol/L Calcium (8.6-10.3) mg/dL Total Bilirubin (0.2-1.0) mg/dL AST (13-39) U/L ALT (7-52) U/L Alkaline Phosphatase (34-104) U/L Troponin I (<0.04) ng/mL C-Reactive Protein (<8.01) mg/L Total Protein (6.4-8.9) g/dL Albumin (3.2-5.2) g/dL Globulin (2-4) g/dL Albumin/Globulin Ratio (1-3) Lipase (11.0-82.0) U/L Urine Color Yellow Urine Appearance Cloudy Urine pH 5.0 (5-9) Ur Specific Vincent 1.023 (1.010-1.030) Urine Protein Negative (Negative) Urine Ketones Negative (Negative) Urine Blood 2+ A (Negative) Urine Nitrate Negative (Negative) Urine Bilirubin Negative (Negative) Urine Urobilinogen Negative (Negative) Ur Leukocyte Esterase Negative (Negative) Urine WBC (Auto) Trace(0-5/hpf) (Absent) Urine RBC (Auto) 3+(>10/hpf) A (Absent) Ur Squamous Epith Cells Present A (Absent) Urine Bacteria Absent (Absent) Urine Glucose Negative (Negative) Microbiology and Other Data: Microbiology 12/28/18 19:10 Urine Culture - Final Urine Strep Group B Assess/Plan/Problems-Billing Assessment: 58 yo F with h/o CHARISSE, obesity, HTN, with ruptured appendicitis, s/p open appendectomy 12/29, went back to OR for wound dehiscence 12/30/18 - Patient Problems (1) Appendicitis Comment: s/p open appy on 12/29, wound dehiscence and back to OR this aM Cont morphine 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
--- NOTE | 2018-12-30 20:07 | OP ---
DATE OF OPERATION: 12/30/18 - ROOM #341 DATE OF : 56 SURGEON: Don Cruz MD PHOTOCOPIER TECHNICIAN: JANETH Mesa ANESTHESIOLOGIST: Dr. Singleton. ANESTHESIA: General. PRE-OP DIAGNOSIS: Fascial dehiscence with evisceration status post open appendectomy. POST-OP DIAGNOSIS: Fascial dehiscence with evisceration status post open appendectomy. OPERATIVE PROCEDURE: Closure of abdominal wall. ESTIMATED BLOOD LOSS: Minimal. IV FLUIDS: 1500 cc of crystalloid. WOUND CLASSIFICATION: 3 COMPLICATIONS: None. DRAINS: None. SPECIMENS: None. BRIEF HISTORY: Ms. Samantha Morris is a 58-year-old woman who is morbidly obese, underwent an open appendectomy for acute appendicitis yesterday. On exam this morning, she was noted to have the serosanguineous drainage from the abdominal wall incision and upon evaluation was found to have a fascial dehiscence with some omental fat protruding through the fascial defect. Sterile dressings were applied and she is now being taken back to the operating room for closure of abdominal wall. The procedure was discussed with the patient. The risks of, but not limited to bleeding, infection, intraabdominal abscess formation, injury to peritoneal and retroperitoneal structures, infection of existing laparoscopic band that had been previously placed, hernia formation, risk of anesthesia, deep vein thrombosis, and pulmonary embolism were all explained. DESCRIPTION OF PROCEDURE: Written informed consent was obtained, the patient has already received antibiotics and the abdomen was marked with indelible ink. She was taken to the operating room and placed in the supine position. Sequential compression device with a warming blanket had already been applied. A Vasquez catheter had been previously inserted. General anesthesia was administered in the abdomen, was prepped and draped in the usual sterile fashion. Betadine was used. Time-out verification was completed. The remaining lisbeth removed from the incision and exposed the omentum and small bowel that eviscerated through the inferior portion of the fascial incision. It appeared that some of the sutures have become loose. The upper half of the fascial incision was intact. The entire abdomen was then thoroughly irrigated with saline. Due to her size and abdominal distension, I was not able to actually visualized the appendectomy site; however, we did irrigate somewhat in this area. The WILIAM drain was in good position. Next, once this was complete, the abdominal wall was closed with full thickness #5 Ethibond retention sutures placed at about a 1.5 cm intervals. I did undermine some of the anterior fascia and limited relaxing incisions along the rectus sheath bilaterally to reduce tension on the repair. The midline fascia was also closed with interrupted #1 Vicryl suture in the usual fashion. A #16 red rubber catheter was used as bolster for the retention sutures. The skin was left open and packed with 1 inch Nu Gauze. Dry sterile dressings were applied. The patient tolerated the procedure well and was taken to recovery room in stable condition. [id number]/[facility] #: [id number] [facility] CAMPUSLizeth
[2018-12-30] MEDS: Ketorolac INJ* 30 MG/ML 1 ML VIAL IV PRN (22:01)
[2018-12-31] MEDS: Piperacillin/Tazobac ADVAN(*) 3.375 GM in NS 0.9% 100 ML* 100 ML IVPB SCH ×4 (04:48→22:47)
[2018-12-31] MEDS: Famotidine IV* 10 MG/ML 2 ML (20 mg) IV SCH ×2 (06:00→17:15)
[2018-12-31] MEDS: Heparin VIAL(*) 5000 UNITS/ML VIAL (FIVE THOUSAND) SUBCUT SCH ×3 (06:00→22:47)
[2018-12-31 08:27] LABS: Hematocrit 41 % (35-47); Hemoglobin 13.3 g/dl (12.0-16.0); Mean Corpuscular HGB Conc 33 g/dl (31-36); Mean Corpuscular Hemoglobin 30 pg (27-31); Mean Corpuscular Volume 93 fL (80-97); Mean Platelet Volume 7.9 fL (7.4-10.4); Platelet Count 246 10^3/ul (150-450); Red Blood Count 4.38 10^6/ul (4.00-5.40); Red Cell Distribution Width 15 % (10.5-15)
[2018-12-31 08:38] LABS: BUN/Creatinine Ratio 15.1 (8-20); Calcium 8.9 mg/dL (8.6-10.3); EGFR African American 142.4 (>60); EGFR Non-African American 117.7 (>60); Phosphorus 2.2 mg/dL (2.5-5.0); Potassium 3.7 mmol/L (3.5-5.0)
--- NOTE | 2018-12-31 08:49 | PN ---
Subjective Date of Service: 12/31/18 Interval History: Pt feels "OK" still not passing flatus. hammond in place Post op pain is "tolerable". Objective Active Medications: Acetaminophen (Tylenol Tab*) 650 mg PO Q6H PRN PRN Reason: FEVER Last Admin: 12/28/18 23:42 Dose: 650 mg Albuterol/Ipratropium (Duoneb (Albuterol 2.5 Mg/Ipratropium 0.5 Mg)) 1 neb INH Q4H PRN PRN Reason: SOB/WHEEZING Famotidine (Pepcid Iv*) 20 mg IV Q12H [facility] Last Admin: 12/31/18 06:00 Dose: 20 mg Heparin Sodium (Porcine) (Heparin Vial(*)) 5,000 units SUBCUT Q8H [facility] Last Admin: 12/31/18 06:00 Dose: 5,000 units Morphine Sulfate (Morphine Maintenance Planning Clerk Adult* 5 Mg/Ml) 30 mls @ 0 mls/hr SENIOR JAVA PROGRAMMER .Q24H [facility] ; Protocol Last Admin: 12/29/18 18:10 Dose: 1 mls/hr Sodium Chloride (Ns 0.9% 1000 Ml) 1,000 mls @ 30 mls/hr IVPB .Q24H [facility] Piperacillin Sod/Tazobactam (Sod 3.375 gm/ Sodium Chloride) 100 mls @ 200 mls/ hr IVPB Q6H [facility] Last Admin: 12/31/18 04:48 Dose: 200 mls/hr Sodium Chloride (Ns 0.9% 1000 Ml) 1,000 mls @ 125 mls/hr IV PER RATE [facility] Last Admin: 12/30/18 21:47 Dose: 125 mls/hr Ketorolac Tromethamine (Toradol Inj*) 30 mg IV Q6H PRN PRN Reason: PAIN Stop: 01/04/19 17:46 Last Admin: 12/30/18 22:01 Dose: 30 mg Naloxone HCl (Narcan*) 0.08 mg IV PUSH Q2M PRN PRN Reason: SEDATION Ondansetron HCl (Zofran Inj*) 4 mg IV Q6H PRN PRN Reason: NAUSEA Last Admin: 12/29/18 05:20 Dose: 4 mg Vital Signs - 8 hr 12/31/18 12/31/18 12/31/18 00:57 01:31 04:21 Temperature 98.3 F 98.7 F Pulse Rate 69 88 Respiratory 16 16 16 Rate Blood Pressure 111/58 142/64 (mmHg) O2 Sat by Pulse 100 94 100 Oximetry 12/31/18 12/31/18 12/31/18 05:00 06:49 07:58 Temperature 98.7 F Pulse Rate 87 Respiratory 18 18 16 Rate Blood Pressure 110/78 (mmHg) O2 Sat by Pulse 94 94 100 Oximetry 12/31/18 08:09 Temperature Pulse Rate Respiratory 16 Rate Blood Pressure (mmHg) O2 Sat by Pulse 100 Oximetry Oxygen Devices in Use Now: OxyMask Appearance: 58 yo F in nAD, AAOx3 Eyes: No Scleral Icterus, PERRLA Ears/Nose/Mouth/Throat: NL Teeth, Lips, Gums, Mucous Membranes Moist Neck: NL Appearance and Movements; NL JVP, Trachea Midline Respiratory: Symmetrical Chest Expansion and Respiratory Effort, - - decreased breath sounds at b/l bases Cardiovascular: NL Sounds; No Murmurs; No JVD, RRR Abdominal: - - distended, soft, tender in RLQ-incision site covered with post op dressings-not removed, WILIAM drain in place, draining cloudy yellow fluid Lymphatic: No Cervical Adenopathy Extremities: No Edema, No Clubbing, Cyanosis Skin: No Rash or Ulcers, No Nodules or Sclerosis Neurological: Alert and Oriented x 3, NL Muscle Strength and Tone Result Diagrams: 12/31/18 08:08 12/31/18 08:08 Additional Lab and Data: Lab Results 12/28/18 12/28/18 12/28/18 Range/Units 17:21 17:21 17:21 WBC 16.2 H (3.5-10.8) 10^3/ul RBC 4.94 (4.00-5.40) 10^6/ul Hgb 15.3 (12.0-16.0) g/dl Hct 46 (35-47) % MCV 92 (80-97) fL MCH 31 (27-31) pg MCHC 34 (31-36) g/dl RDW 14 (10.5-15) % Plt Count 322 (150-450) 10^3/ul MPV 7.6 (7.4-10.4) fL Neut % (Auto) 79.7 % Lymph % (Auto) 14.9 % [place] % (Auto) 4.5 % Eos % (Auto) 0.5 % Baso % (Auto) 0.4 % Absolute Neuts (auto) 12.9 H (1.5-7.7) 10^3/ul Absolute Lymphs (auto) 2.4 (1.0-4.8) 10^3/ul Absolute Monos (auto) 0.7 (0-0.8) 10^3/ul Absolute Eos (auto) 0.1 (0-0.6) 10^3/ul Absolute Basos (auto) 0.1 (0-0.2) 10^3/ul Absolute Nucleated RBC 0 10^3/ul Nucleated RBC % 0 INR (Anticoag Therapy) 0.95 (0.77-1.02) APTT 34.1 (26.0-36.3) seconds Sodium 136 (135-145) mmol/L Potassium 4.3 (3.5-5.0) mmol/L Chloride 97 L (101-111) mmol/L Carbon Dioxide 32 (22-32) mmol/L Anion Gap 7 (2-11) mmol/L BUN 11 (6-24) mg/dL Creatinine 0.62 (0.51-0.95) mg/dL Est GFR ( Amer) 118.8 (>60) Est GFR (Non-Af Amer) 98.2 (>60) BUN/Creatinine Ratio 17.7 (8-20) Glucose 132 H (70-100) mg/dL Lactic Acid (0.5-2.0) mmol/L Calcium 9.7 (8.6-10.3) mg/dL Total Bilirubin 0.60 (0.2-1.0) mg/dL AST 14 (13-39) U/L ALT 20 (7-52) U/L Alkaline Phosphatase 70 (34-104) U/L Troponin I 0.00 (<0.04) ng/mL C-Reactive Protein 40.20 H (<8.01) mg/L Total Protein 7.3 (6.4-8.9) g/dL Albumin 4.3 (3.2-5.2) g/dL Globulin 3.0 (2-4) g/dL Albumin/Globulin Ratio 1.4 (1-3) Lipase 11 (11.0-82.0) U/L Urine Color Urine Appearance Urine pH (5-9) Ur Specific [place] (1.010-1.030) Urine Protein (Negative) Urine Ketones (Negative) Urine Blood (Negative) Urine Nitrate (Negative) Urine Bilirubin (Negative) Urine Urobilinogen (Negative) Ur Leukocyte Esterase (Negative) Urine WBC (Auto) (Absent) Urine RBC (Auto) (Absent) Ur Squamous Epith Cells (Absent) Urine Bacteria (Absent) Urine Glucose (Negative) 12/28/18 12/28/18 Range/Units 19:10 19:58 WBC (3.5-10.8) 10^3/ul RBC (4.00-5.40) 10^6/ul Hgb (12.0-16.0) g/dl Hct (35-47) % MCV (80-97) fL MCH (27-31) pg MCHC (31-36) g/dl RDW (10.5-15) % Plt Count (150-450) 10^3/ul MPV (7.4-10.4) fL Neut % (Auto) % Lymph % (Auto) % [place] % (Auto) % Eos % (Auto) % Baso % (Auto) % Absolute Neuts (auto) (1.5-7.7) 10^3/ul Absolute Lymphs (auto) (1.0-4.8) 10^3/ul Absolute Monos (auto) (0-0.8) 10^3/ul Absolute Eos (auto) (0-0.6) 10^3/ul Absolute Basos (auto) (0-0.2) 10^3/ul Absolute Nucleated RBC 10^3/ul Nucleated RBC % INR (Anticoag Therapy) (0.77-1.02) APTT (26.0-36.3) seconds Sodium (135-145) mmol/L Potassium (3.5-5.0) mmol/L Chloride (101-111) mmol/L Carbon Dioxide (22-32) mmol/L Anion Gap (2-11) mmol/L BUN (6-24) mg/dL Creatinine (0.51-0.95) mg/dL Est GFR ( Amer) (>60) Est GFR (Non-Af Amer) (>60) BUN/Creatinine Ratio (8-20) Glucose (70-100) mg/dL Lactic Acid 1.5 (0.5-2.0) mmol/L Calcium (8.6-10.3) mg/dL Total Bilirubin (0.2-1.0) mg/dL AST (13-39) U/L ALT (7-52) U/L Alkaline Phosphatase (34-104) U/L Troponin I (<0.04) ng/mL C-Reactive Protein (<8.01) mg/L Total Protein (6.4-8.9) g/dL Albumin (3.2-5.2) g/dL Globulin (2-4) g/dL Albumin/Globulin Ratio (1-3) Lipase (11.0-82.0) U/L Urine Color Yellow Urine Appearance Cloudy Urine pH 5.0 (5-9) Ur Specific [place] 1.023 (1.010-1.030) Urine Protein Negative (Negative) Urine Ketones Negative (Negative) Urine Blood 2+ A (Negative) Urine Nitrate Negative (Negative) Urine Bilirubin Negative (Negative) Urine Urobilinogen Negative (Negative) Ur Leukocyte Esterase Negative (Negative) Urine WBC (Auto) Trace(0-5/hpf) (Absent) Urine RBC (Auto) 3+(>10/hpf) A (Absent) Ur Squamous Epith Cells Present A (Absent) Urine Bacteria Absent (Absent) Urine Glucose Negative (Negative) Microbiology and Other Data: Microbiology 12/28/18 19:10 Urine Culture - Final Urine Strep Group B Assess/Plan/Problems-Billing Assessment: 58 yo F with h/o CHARISSE, obesity, HTN, with ruptured appendicitis, s/p open appendectomy 12/29, went back to OR for wound dehiscence 12/30/18 - Patient Problems (1) Appendicitis Comment: s/p open appy on 12/29, wound dehiscence and back to OR for abd wound closure on 12/30/18 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
[2018-12-31] MEDS: NS 0.9% 1000 ML** 1,000 ML IV SCH ×2 (10:11→21:04)
--- NOTE | 2018-12-31 10:35 | PN ---
Progress Note - Progress Note Date of Service: 12/31/18 SOAP: Subjective: Feels better this AM Sitting up in chair, No SOB Pain is adequately controlled No flatus, no nausea Objective: Temp Pulse Resp BP Pulse Ox 98.7 F 87 16 110/78 100 12/31/18 07:58 12/31/18 07:58 12/31/18 08:09 12/31/18 07:58 12/31/18 08:09 Intake & Output 12/29/18 12/30/18 12/31/18 01/01/19 06:59 06:59 06:59 06:59 Intake Total 1060 6022 2495 1250 Output Total 600 1080 820 120 Balance 460 4942 1675 1130 Weight 260 lb 260 lb Intake: IV Fluids 1060 5282 1955 ABX - ZOSYN 105 LR 2850 NS (0.9%) 1945 NS 100ML, Zosyn 3.375G 100 ns 282 IVPB 105 1250 ABX - ZOSYN 105 NS (0.9%) 1250 Oral 0 635 540 Output: WILIAM #1 130 195 120 Urine 600 200 Vasquez 750 625 Other: Estimated Blood Loss <100 Comment PEX: Comfortable, awake and alert Lungs clear with decreased BS in bases Abd is distended and firm, minimal BS present. Wound is intact, no drainage' WILIAM in place Labs noted Assessment: POD#2 s/p open appendectomy, POD#1 s/p return to OR for abdominal wall closure after fascial dehiscence Obesity HTN UTI Plan: IV abx Pul toilet--OOB, ambulate Sips of clears H2 vicente, subq heparin [place], toradol Appreciate Hospitalist care.
[2018-12-31] MEDS ORDERED: NS 0.9% 100 ML* 100 ML ONE (22:43)
[2018-12-31] MEDS: Ketorolac INJ* 30 MG/ML 1 ML VIAL IV PRN (22:47)
[2019-01-01] MEDS: Piperacillin/Tazobac ADVAN(*) 3.375 GM in NS 0.9% 100 ML* 100 ML IVPB SCH ×4 (05:45→22:34)
[2019-01-01] MEDS: Famotidine IV* 10 MG/ML 2 ML (20 mg) IV SCH ×2 (05:46→17:31)
[2019-01-01] MEDS: Heparin VIAL(*) 5000 UNITS/ML VIAL (FIVE THOUSAND) SUBCUT SCH ×3 (05:49→21:49)
--- NOTE | 2019-01-01 08:58 | PN ---
Subjective Date of Service: 01/01/19 Interval History: Pt still has not passed flatus. abd pain , post op -well controlled. Pt c/o feeling hungry Objective Active Medications: Acetaminophen (Tylenol Tab*) 650 mg PO Q6H PRN PRN Reason: FEVER Last Admin: 12/28/18 23:42 Dose: 650 mg Albuterol/Ipratropium (Duoneb (Albuterol 2.5 Mg/Ipratropium 0.5 Mg)) 1 neb INH Q4H PRN PRN Reason: SOB/WHEEZING Famotidine (Pepcid Iv*) 20 mg IV Q12H [facility] Last Admin: 01/01/19 05:46 Dose: 20 mg Heparin Sodium (Porcine) (Heparin Vial(*)) 5,000 units SUBCUT Q8H [facility] Last Admin: 01/01/19 05:49 Dose: 5,000 units Morphine Sulfate (Morphine Equipment Engineering Technician Adult* 5 Mg/Ml) 30 mls @ 0 mls/hr NETWORK SUPPORT MANAGER .Q24H [facility] ; Protocol Last Admin: 12/29/18 18:10 Dose: 1 mls/hr Sodium Chloride (Ns 0.9% 1000 Ml) 1,000 mls @ 30 mls/hr IVPB .Q24H [facility] Piperacillin Sod/Tazobactam (Sod 3.375 gm/ Sodium Chloride) 100 mls @ 200 mls/ hr IVPB Q6H [facility] Last Admin: 01/01/19 05:45 Dose: 200 mls/hr Sodium Chloride (Ns 0.9% 1000 Ml) 1,000 mls @ 125 mls/hr IV PER RATE [facility] Last Admin: 12/31/18 21:04 Dose: 125 mls/hr Ketorolac Tromethamine (Toradol Inj*) 30 mg IV Q6H PRN PRN Reason: PAIN Stop: 01/04/19 17:46 Last Admin: 12/31/18 22:47 Dose: 30 mg Naloxone HCl (Narcan*) 0.08 mg IV PUSH Q2M PRN PRN Reason: SEDATION Ondansetron HCl (Zofran Inj*) 4 mg IV Q6H PRN PRN Reason: NAUSEA Last Admin: 12/29/18 05:20 Dose: 4 mg Vital Signs - 8 hr 01/01/19 01/01/19 01/01/19 01:00 03:00 03:21 Temperature 97.9 F Pulse Rate 80 Respiratory 20 20 17 Rate Blood Pressure 136/73 (mmHg) O2 Sat by Pulse 94 98 100 Oximetry 01/01/19 01/01/19 05:42 06:50 Temperature Pulse Rate 75 Respiratory 20 Rate Blood Pressure (mmHg) O2 Sat by Pulse 96 Oximetry Oxygen Devices in Use Now: Nasal Cannula Appearance: 58 yo F, obese in NAD, AAOx3 Eyes: No Scleral Icterus, PERRLA Ears/Nose/Mouth/Throat: NL Teeth, Lips, Gums, Mucous Membranes Moist Neck: NL Appearance and Movements; NL JVP, Trachea Midline Respiratory: Symmetrical Chest Expansion and Respiratory Effort, - - crackles at LLL Cardiovascular: NL Sounds; No Murmurs; No JVD, RRR Abdominal: - - large, distended, midline incision with retention sutures and packing in between them . RLQ incision with WILIAM drain in place Extremities: No Clubbing, Cyanosis, - - trace b/l pedela edema Skin: No Nodules or Sclerosis Neurological: Alert and Oriented x 3, NL Muscle Strength and Tone Result Diagrams: 12/31/18 08:08 12/31/18 08:08 Additional Lab and Data: Lab Results 12/28/18 12/28/18 12/28/18 Range/Units 17:21 17:21 17:21 WBC 16.2 H (3.5-10.8) 10^3/ul RBC 4.94 (4.00-5.40) 10^6/ul Hgb 15.3 (12.0-16.0) g/dl Hct 46 (35-47) % MCV 92 (80-97) fL MCH 31 (27-31) pg MCHC 34 (31-36) g/dl RDW 14 (10.5-15) % Plt Count 322 (150-450) 10^3/ul MPV 7.6 (7.4-10.4) fL Neut % (Auto) 79.7 % Lymph % (Auto) 14.9 % [place] % (Auto) 4.5 % Eos % (Auto) 0.5 % Baso % (Auto) 0.4 % Absolute Neuts (auto) 12.9 H (1.5-7.7) 10^3/ul Absolute Lymphs (auto) 2.4 (1.0-4.8) 10^3/ul Absolute Monos (auto) 0.7 (0-0.8) 10^3/ul Absolute Eos (auto) 0.1 (0-0.6) 10^3/ul Absolute Basos (auto) 0.1 (0-0.2) 10^3/ul Absolute Nucleated RBC 0 10^3/ul Nucleated RBC % 0 INR (Anticoag Therapy) 0.95 (0.77-1.02) APTT 34.1 (26.0-36.3) seconds Sodium 136 (135-145) mmol/L Potassium 4.3 (3.5-5.0) mmol/L Chloride 97 L (101-111) mmol/L Carbon Dioxide 32 (22-32) mmol/L Anion Gap 7 (2-11) mmol/L BUN 11 (6-24) mg/dL Creatinine 0.62 (0.51-0.95) mg/dL Est GFR ( Amer) 118.8 (>60) Est GFR (Non-Af Amer) 98.2 (>60) BUN/Creatinine Ratio 17.7 (8-20) Glucose 132 H (70-100) mg/dL Lactic Acid (0.5-2.0) mmol/L Calcium 9.7 (8.6-10.3) mg/dL Total Bilirubin 0.60 (0.2-1.0) mg/dL AST 14 (13-39) U/L ALT 20 (7-52) U/L Alkaline Phosphatase 70 (34-104) U/L Troponin I 0.00 (<0.04) ng/mL C-Reactive Protein 40.20 H (<8.01) mg/L Total Protein 7.3 (6.4-8.9) g/dL Albumin 4.3 (3.2-5.2) g/dL Globulin 3.0 (2-4) g/dL Albumin/Globulin Ratio 1.4 (1-3) Lipase 11 (11.0-82.0) U/L Urine Color Urine Appearance Urine pH (5-9) Ur Specific [place] (1.010-1.030) Urine Protein (Negative) Urine Ketones (Negative) Urine Blood (Negative) Urine Nitrate (Negative) Urine Bilirubin (Negative) Urine Urobilinogen (Negative) Ur Leukocyte Esterase (Negative) Urine WBC (Auto) (Absent) Urine RBC (Auto) (Absent) Ur Squamous Epith Cells (Absent) Urine Bacteria (Absent) Urine Glucose (Negative) 12/28/18 12/28/18 Range/Units 19:10 19:58 WBC (3.5-10.8) 10^3/ul RBC (4.00-5.40) 10^6/ul Hgb (12.0-16.0) g/dl Hct (35-47) % MCV (80-97) fL MCH (27-31) pg MCHC (31-36) g/dl RDW (10.5-15) % Plt Count (150-450) 10^3/ul MPV (7.4-10.4) fL Neut % (Auto) % Lymph % (Auto) % [place] % (Auto) % Eos % (Auto) % Baso % (Auto) % Absolute Neuts (auto) (1.5-7.7) 10^3/ul Absolute Lymphs (auto) (1.0-4.8) 10^3/ul Absolute Monos (auto) (0-0.8) 10^3/ul Absolute Eos (auto) (0-0.6) 10^3/ul Absolute Basos (auto) (0-0.2) 10^3/ul Absolute Nucleated RBC 10^3/ul Nucleated RBC % INR (Anticoag Therapy) (0.77-1.02) APTT (26.0-36.3) seconds Sodium (135-145) mmol/L Potassium (3.5-5.0) mmol/L Chloride (101-111) mmol/L Carbon Dioxide (22-32) mmol/L Anion Gap (2-11) mmol/L BUN (6-24) mg/dL Creatinine (0.51-0.95) mg/dL Est GFR ( Amer) (>60) Est GFR (Non-Af Amer) (>60) BUN/Creatinine Ratio (8-20) Glucose (70-100) mg/dL Lactic Acid 1.5 (0.5-2.0) mmol/L Calcium (8.6-10.3) mg/dL Total Bilirubin (0.2-1.0) mg/dL AST (13-39) U/L ALT (7-52) U/L Alkaline Phosphatase (34-104) U/L Troponin I (<0.04) ng/mL C-Reactive Protein (<8.01) mg/L Total Protein (6.4-8.9) g/dL Albumin (3.2-5.2) g/dL Globulin (2-4) g/dL Albumin/Globulin Ratio (1-3) Lipase (11.0-82.0) U/L Urine Color Yellow Urine Appearance Cloudy Urine pH 5.0 (5-9) Ur Specific [place] 1.023 (1.010-1.030) Urine Protein Negative (Negative) Urine Ketones Negative (Negative) Urine Blood 2+ A (Negative) Urine Nitrate Negative (Negative) Urine Bilirubin Negative (Negative) Urine Urobilinogen Negative (Negative) Ur Leukocyte Esterase Negative (Negative) Urine WBC (Auto) Trace(0-5/hpf) (Absent) Urine RBC (Auto) 3+(>10/hpf) A (Absent) Ur Squamous Epith Cells Present A (Absent) Urine Bacteria Absent (Absent) Urine Glucose Negative (Negative) Microbiology and Other Data: Microbiology 12/28/18 19:10 Urine Culture - Final Urine Strep Group B Assess/Plan/Problems-Billing Assessment: 58 yo F with h/o CHARISSE, obesity, HTN, with ruptured appendicitis, s/p open appendectomy 12/29, went back to OR for wound dehiscence 12/30/18 - Patient Problems (1) Appendicitis Comment: s/p open appy on 12/29, wound dehiscence and back to OR for abd wound closure on 12/30/18 Cont morphine NETWORK SUPPORT MANAGER as per surgery cont Zosyn Still in post op ileus, on clears (2) HTN (hypertension) Comment: controlled off meds (3) CHARISSE (obstructive sleep apnea) Comment: cont CPAP (4) DVT prophylaxis Comment: HSQ Status and Disposition: medicine consult
--- NOTE | 2019-01-01 10:20 | PN ---
Progress Note - Progress Note Date of Service: 01/01/19 SOAP: Subjective: Without significant complaint-she wants to eat, no flatus however, no nausea but she has been burping Pain adequately controlled with ANIMAL CARE ATTENDANT Ambulated in halls yesterday Objective: Temp Pulse Resp BP Pulse Ox 97.6 F 72 18 136/64 100 01/01/19 08:04 01/01/19 08:04 01/01/19 09:00 01/01/19 08:04 01/01/19 09:00 Intake & Output 12/30/18 12/31/18 01/01/19 01/02/19 06:59 06:59 06:59 06:59 Intake Total 6022 2495 2364 Output Total 5395 474 9122 130 Balance 4942 1675 634 -130 Weight 260 lb Intake: IV Fluids 5282 1955 994 ABX - ZOSYN 105 LR 2850 NS (0.9%) 1945 994 NS 100ML, Zosyn 3.375G 100 ns 282 IVPB 105 1250 ABX - ZOSYN 105 NS (0.9%) 1250 Oral 635 540 120 Output: WILIAM #1 130 195 580 130 Urine 200 1150 Vasquez 750 625 Other: Estimated Blood Loss <100 Comment PEX: Comfortable in chair Lungs clear with decreased breath sounds at bases Abd is distended and tympanitic--no bowel sounds present. Incision is clean and open, packing changed. WILIAM in place-serous fluid in bulb Ext without edema Urine culture without growth Assessment: S/P open appendectomy, return to OR for fascial dehiscence Ileus Plan: IV abx Sips of clears Increase activity, pulmonary toilet, wound care H2 vicente, subq heparin Decrease IVF Appreciate hospitalist consult
[2019-01-01] MEDS: NS 0.9% 1000 ML** 1,000 ML IV SCH (11:14)
[2019-01-01] MEDS: Morphine INJ* 2 MG/ML 1 ML SYRINGE (TWO MG - NEW SYRINGE VERSION) IV PRN (19:38)
[2019-01-01] MEDS: Ketorolac INJ* 30 MG/ML 1 ML VIAL IV PRN (21:49)
[2019-01-01] MEDS: Ondansetron INJ* 2 MG/ML VIAL IV PRN (21:50)
[2019-01-02] MEDS: NS 0.9% 1000 ML** 1,000 ML IV SCH (02:48)
[2019-01-02] MEDS: Ketorolac INJ* 30 MG/ML 1 ML VIAL IV PRN ×3 (04:14→22:23)
[2019-01-02] MEDS: Ondansetron INJ* 2 MG/ML VIAL IV PRN ×2 (04:14→11:27)
[2019-01-02] MEDS: Heparin VIAL(*) 5000 UNITS/ML VIAL (FIVE THOUSAND) SUBCUT SCH ×3 (05:22→22:25)
[2019-01-02] MEDS: Famotidine IV* 10 MG/ML 2 ML (20 mg) IV SCH ×2 (05:22→17:43)
[2019-01-02] MEDS: Piperacillin/Tazobac ADVAN(*) 3.375 GM in NS 0.9% 100 ML* 100 ML IVPB SCH ×4 (05:22→22:22)
[2019-01-02 05:50] LABS: Hematocrit 44 % (35-47); Hemoglobin 14.5 g/dl (12.0-16.0); Mean Corpuscular HGB Conc 33 g/dl (31-36); Mean Corpuscular Hemoglobin 31 pg (27-31); Mean Corpuscular Volume 93 fL (80-97); Red Blood Count 4.74 10^6/ul (4.00-5.40); Red Cell Distribution Width 14 % (10.5-15); White Blood Count 11.6 10^3/ul (3.5-10.8)
[2019-01-02 05:57] LABS: CO2 Carbon Dioxide 25 mmol/L (22-32); Calcium 8.5 mg/dL (8.6-10.3); Chloride 105 mmol/L (101-111); Sodium 138 mmol/L (135-145)
[2019-01-02 06:02] LABS: BUN/Creatinine Ratio 22.4 (8-20); Blood Urea Nitrogen 11 mg/dL (6-24); EGFR African American 155.9 (>60); EGFR Non-African American 128.8 (>60); Glucose 112 mg/dL (70-100)
[2019-01-02 06:08] LABS: Anion Gap 8 mmol/L (2-11); Platelet Count Platelets clumped. 10^3/ul (150-450)
[2019-01-02] MEDS ORDERED: Furosemide IV* 10 MG/ML 2 ML VIAL (20 MG) IV ONE (08:28)
[2019-01-02] MEDS ORDERED: NS 0.9% 1000 ML** 1,000 ML IV SCH (08:28)
--- NOTE | 2019-01-02 09:10 | PN ---
Progress Note - Progress Note Date of Service: 01/02/19 SOAP: Subjective: Started passing flatus last night, although retched some bilious fluid this morning. No further nausea Pain adequately controlled No SOB Objective: Temp Pulse Resp BP Pulse Ox 99.3 F 82 18 146/75 94 01/02/19 07:42 01/02/19 07:42 01/02/19 08:00 01/02/19 07:42 01/02/19 08:00 Intake & Output 12/31/18 01/01/19 01/02/19 01/03/19 06:59 06:59 06:59 06:59 Intake Total 2495 2364 2974 Output Total 820 1730 1175 160 Balance 6903 716 8034 -160 Intake: IV Fluids 6906 782 2950 ABX - ZOSYN 322 NS (0.9%) 994 1892 IVPB 1250 100 ABX - ZOSYN 100 NS (0.9%) 1250 Oral 540 120 660 Output: WILIAM #1 195 580 615 60 Urine 1150 560 100 Vasquez 625 PEX: Comfortable in chair Lungs with decreased breath sounds at bases No rales Abd is soft and distended, less so than yesterday. Few bowel sounds present. Incision is clean and packed. No redness Ext with 1-2 + edema Laboratory Results - last 24 hr 01/02/19 01/02/19 01/02/19 05:40 05:40 07:00 WBC 11.6 H RBC 4.74 Hgb 14.5 Hct 44 MCV 93 MCH 31 MCHC 33 RDW 14 Plt Count Platelets clumped. H MPV Not Reportable Clumped Platelets Present Sodium 138 Potassium TNP 4.1 Chloride 105 Carbon Dioxide 25 Anion Gap 8 BUN 11 Creatinine 0.49 L Est GFR ( Amer) 155.9 Est GFR (Non-Af Amer) 128.8 BUN/Creatinine Ratio 22.4 H Glucose 112 H Calcium 8.5 L Assessment: S/P open appendectomy and subsequent return to OR for closure of fascial dehiscence. Ileus-appears to be resolving Plan: Lasix today, decrease IVF Sips of clear liquids Analgesia Pul toilet, OOB, ambulate H2 vicente, subq heparin
--- NOTE | 2019-01-02 16:57 | PN ---
Subjective Date of Service: 01/02/19 Interval History: Pt started passing flatus last night, abd still markedly distended Tolerating clears Objective Active Medications: Acetaminophen (Tylenol Tab*) 650 mg PO Q6H PRN PRN Reason: FEVER Last Admin: 12/28/18 23:42 Dose: 650 mg Albuterol/Ipratropium (Duoneb (Albuterol 2.5 Mg/Ipratropium 0.5 Mg)) 1 neb INH Q4H PRN PRN Reason: SOB/WHEEZING Famotidine (Pepcid Iv*) 20 mg IV Q12H [facility] Last Admin: 01/02/19 05:22 Dose: 20 mg Heparin Sodium (Porcine) (Heparin Vial(*)) 5,000 units SUBCUT Q8H [facility] Last Admin: 01/02/19 14:33 Dose: 5,000 units Piperacillin Sod/Tazobactam (Sod 3.375 gm/ Sodium Chloride) 100 mls @ 200 mls/ hr IVPB Q6H [facility] Last Admin: 01/02/19 11:21 Dose: 200 mls/hr Sodium Chloride (Ns 0.9% 1000 Ml) 1,000 mls @ 30 mls/hr IV PER RATE [facility] Ketorolac Tromethamine (Toradol Inj*) 30 mg IV Q6H PRN PRN Reason: PAIN Stop: 01/04/19 17:46 Last Admin: 01/02/19 14:41 Dose: 30 mg Morphine Sulfate (Morphine Inj ((Syringe))*) 2 mg IV Q2H PRN PRN Reason: PAIN Last Admin: 01/01/19 19:38 Dose: 2 mg Ondansetron HCl (Zofran Inj*) 4 mg IV Q6H PRN PRN Reason: NAUSEA Last Admin: 01/02/19 11:27 Dose: 4 mg Vital Signs - 8 hr 01/02/19 01/02/19 15:49 15:55 Temperature 98.2 F Pulse Rate 71 Respiratory 16 Rate Blood Pressure 149/75 (mmHg) O2 Sat by Pulse 97 97 Oximetry Oxygen Devices in Use Now: None Appearance: 58 yo F in nAD, aAOx3 Eyes: No Scleral Icterus, PERRLA Ears/Nose/Mouth/Throat: NL Teeth, Lips, Gums, Mucous Membranes Moist Neck: NL Appearance and Movements; NL JVP, Trachea Midline Respiratory: Symmetrical Chest Expansion and Respiratory Effort, Clear to Auscultation Cardiovascular: NL Sounds; No Murmurs; No JVD, RRR Abdominal: - - distended, BS+ mild tendereness debbie-incision site. Midline incision and RLQ incision with WILIAM drain-not uncovered today Extremities: No Clubbing, Cyanosis, - - trace pedal edema b/l Skin: No Rash or Ulcers, No Nodules or Sclerosis Neurological: Alert and Oriented x 3, NL Muscle Strength and Tone Result Diagrams: 01/02/19 05:40 01/02/19 07:00 Additional Lab and Data: Lab Results 12/28/18 12/28/18 12/28/18 Range/Units 17:21 17:21 17:21 WBC 16.2 H (3.5-10.8) 10^3/ul RBC 4.94 (4.00-5.40) 10^6/ul Hgb 15.3 (12.0-16.0) g/dl Hct 46 (35-47) % MCV 92 (80-97) fL MCH 31 (27-31) pg MCHC 34 (31-36) g/dl RDW 14 (10.5-15) % Plt Count 322 (150-450) 10^3/ul MPV 7.6 (7.4-10.4) fL Neut % (Auto) 79.7 % Lymph % (Auto) 14.9 % [place] % (Auto) 4.5 % Eos % (Auto) 0.5 % Baso % (Auto) 0.4 % Absolute Neuts (auto) 12.9 H (1.5-7.7) 10^3/ul Absolute Lymphs (auto) 2.4 (1.0-4.8) 10^3/ul Absolute Monos (auto) 0.7 (0-0.8) 10^3/ul Absolute Eos (auto) 0.1 (0-0.6) 10^3/ul Absolute Basos (auto) 0.1 (0-0.2) 10^3/ul Absolute Nucleated RBC 0 10^3/ul Nucleated RBC % 0 INR (Anticoag Therapy) 0.95 (0.77-1.02) APTT 34.1 (26.0-36.3) seconds Sodium 136 (135-145) mmol/L Potassium 4.3 (3.5-5.0) mmol/L Chloride 97 L (101-111) mmol/L Carbon Dioxide 32 (22-32) mmol/L Anion Gap 7 (2-11) mmol/L BUN 11 (6-24) mg/dL Creatinine 0.62 (0.51-0.95) mg/dL Est GFR ( Amer) 118.8 (>60) Est GFR (Non-Af Amer) 98.2 (>60) BUN/Creatinine Ratio 17.7 (8-20) Glucose 132 H (70-100) mg/dL Lactic Acid (0.5-2.0) mmol/L Calcium 9.7 (8.6-10.3) mg/dL Total Bilirubin 0.60 (0.2-1.0) mg/dL AST 14 (13-39) U/L ALT 20 (7-52) U/L Alkaline Phosphatase 70 (34-104) U/L Troponin I 0.00 (<0.04) ng/mL C-Reactive Protein 40.20 H (<8.01) mg/L Total Protein 7.3 (6.4-8.9) g/dL Albumin 4.3 (3.2-5.2) g/dL Globulin 3.0 (2-4) g/dL Albumin/Globulin Ratio 1.4 (1-3) Lipase 11 (11.0-82.0) U/L Urine Color Urine Appearance Urine pH (5-9) Ur Specific [place] (1.010-1.030) Urine Protein (Negative) Urine Ketones (Negative) Urine Blood (Negative) Urine Nitrate (Negative) Urine Bilirubin (Negative) Urine Urobilinogen (Negative) Ur Leukocyte Esterase (Negative) Urine WBC (Auto) (Absent) Urine RBC (Auto) (Absent) Ur Squamous Epith Cells (Absent) Urine Bacteria (Absent) Urine Glucose (Negative) 12/28/18 12/28/18 Range/Units 19:10 19:58 WBC (3.5-10.8) 10^3/ul RBC (4.00-5.40) 10^6/ul Hgb (12.0-16.0) g/dl Hct (35-47) % MCV (80-97) fL MCH (27-31) pg MCHC (31-36) g/dl RDW (10.5-15) % Plt Count (150-450) 10^3/ul MPV (7.4-10.4) fL Neut % (Auto) % Lymph % (Auto) % [place] % (Auto) % Eos % (Auto) % Baso % (Auto) % Absolute Neuts (auto) (1.5-7.7) 10^3/ul Absolute Lymphs (auto) (1.0-4.8) 10^3/ul Absolute Monos (auto) (0-0.8) 10^3/ul Absolute Eos (auto) (0-0.6) 10^3/ul Absolute Basos (auto) (0-0.2) 10^3/ul Absolute Nucleated RBC 10^3/ul Nucleated RBC % INR (Anticoag Therapy) (0.77-1.02) APTT (26.0-36.3) seconds Sodium (135-145) mmol/L Potassium (3.5-5.0) mmol/L Chloride (101-111) mmol/L Carbon Dioxide (22-32) mmol/L Anion Gap (2-11) mmol/L BUN (6-24) mg/dL Creatinine (0.51-0.95) mg/dL Est GFR ( Amer) (>60) Est GFR (Non-Af Amer) (>60) BUN/Creatinine Ratio (8-20) Glucose (70-100) mg/dL Lactic Acid 1.5 (0.5-2.0) mmol/L Calcium (8.6-10.3) mg/dL Total Bilirubin (0.2-1.0) mg/dL AST (13-39) U/L ALT (7-52) U/L Alkaline Phosphatase (34-104) U/L Troponin I (<0.04) ng/mL C-Reactive Protein (<8.01) mg/L Total Protein (6.4-8.9) g/dL Albumin (3.2-5.2) g/dL Globulin (2-4) g/dL Albumin/Globulin Ratio (1-3) Lipase (11.0-82.0) U/L Urine Color Yellow Urine Appearance Cloudy Urine pH 5.0 (5-9) Ur Specific [place] 1.023 (1.010-1.030) Urine Protein Negative (Negative) Urine Ketones Negative (Negative) Urine Blood 2+ A (Negative) Urine Nitrate Negative (Negative) Urine Bilirubin Negative (Negative) Urine Urobilinogen Negative (Negative) Ur Leukocyte Esterase Negative (Negative) Urine WBC (Auto) Trace(0-5/hpf) (Absent) Urine RBC (Auto) 3+(>10/hpf) A (Absent) Ur Squamous Epith Cells Present A (Absent) Urine Bacteria Absent (Absent) Urine Glucose Negative (Negative) Microbiology and Other Data: Microbiology 12/28/18 19:10 Urine Culture - Final Urine Strep Group B Assess/Plan/Problems-Billing Assessment: 58 yo F with h/o CHARISSE, obesity, HTN, with ruptured appendicitis, s/p open appendectomy 12/29, went back to OR for wound dehiscence 12/30/18 - Patient Problems (1) Appendicitis Comment: s/p open appy on 12/29, wound dehiscence and back to OR for abd wound closure on 12/30/18 cont Zosyn Post op ileus may be slowly resolving, on clears (2) HTN (hypertension) Comment: controlled off meds (3) CHARISSE (obstructive sleep apnea) Comment: cont CPAP (4) Fluid overload Comment: noted fluid retention in LE's and abdomen agree with a dose of IV Lasix as per surgery today (5) DVT prophylaxis Comment: HSQ Status and Disposition: medicine consult
[2019-01-02] MEDS: Morphine INJ* 2 MG/ML 1 ML SYRINGE (TWO MG - NEW SYRINGE VERSION) IV PRN (17:43)
[2019-01-03 06:04] LABS: BUN/Creatinine Ratio 16.1 (8-20); Calcium 8.2 mg/dL (8.6-10.3); EGFR African American 133.6 (>60); EGFR Non-African American 110.4 (>60); Magnesium 1.8 mg/dL (1.9-2.7); Potassium 3.4 mmol/L (3.5-5.0)
[2019-01-03] MEDS: Piperacillin/Tazobac ADVAN(*) 3.375 GM in NS 0.9% 100 ML* 100 ML IVPB SCH ×4 (06:12→22:39)
[2019-01-03] MEDS: Famotidine IV* 10 MG/ML 2 ML (20 mg) IV SCH ×2 (06:16→17:22)
[2019-01-03] MEDS: Heparin VIAL(*) 5000 UNITS/ML VIAL (FIVE THOUSAND) SUBCUT SCH ×3 (06:17→22:37)
[2019-01-03] MEDS ORDERED: Furosemide IV* 10 MG/ML 2 ML VIAL (20 MG) IV ONE (07:58)
[2019-01-03] MEDS ORDERED: Magnesium Sulfate 1 GM IV* 1 GM/100 ML BAG IV ONE (08:00)
[2019-01-03] MEDS ORDERED: KCL 20 MEQ/100 ML IVPREMIX* 20 MEQ/100 ML BAG IV SCH (08:00)
--- NOTE | 2019-01-03 08:03 | PN ---
Subjective Date of Service: 01/03/19 Interval History: Pt feels well. She had a BM last night, but still c/o occasional nausea Objective Active Medications: Acetaminophen (Tylenol Tab*) 650 mg PO Q6H PRN PRN Reason: FEVER Last Admin: 12/28/18 23:42 Dose: 650 mg Albuterol/Ipratropium (Duoneb (Albuterol 2.5 Mg/Ipratropium 0.5 Mg)) 1 neb INH Q4H PRN PRN Reason: SOB/WHEEZING Famotidine (Pepcid Iv*) 20 mg IV Q12H [facility] Last Admin: 01/03/19 06:16 Dose: 20 mg Furosemide (Lasix Iv*) 20 mg IV ONCE ONE Stop: 01/03/19 07:59 Heparin Sodium (Porcine) (Heparin Vial(*)) 5,000 units SUBCUT Q8H [facility] Last Admin: 01/03/19 06:17 Dose: 5,000 units Piperacillin Sod/Tazobactam (Sod 3.375 gm/ Sodium Chloride) 100 mls @ 200 mls/ hr IVPB Q6H [facility] Last Admin: 01/03/19 06:12 Dose: 200 mls/hr Magnesium Sulfate/Dextrose (Magnesium Sulfate 1 Gm Iv*) 1 gm in 100 mls @ 200 mls/hr IV ONCE ONE Stop: 01/03/19 08:27 Potassium Chloride (Potassium Chloride 20 Meq/100 Ml Ivpremix*) 20 meq in 100 mls @ 50 mls/hr IV Q2H [facility] Stop: 01/03/19 11:59 Ketorolac Tromethamine (Toradol Inj*) 30 mg IV Q6H PRN PRN Reason: PAIN Stop: 01/04/19 17:46 Last Admin: 01/02/19 22:23 Dose: 30 mg Morphine Sulfate (Morphine Inj ((Syringe))*) 2 mg IV Q2H PRN PRN Reason: PAIN Last Admin: 01/02/19 17:43 Dose: 2 mg Ondansetron HCl (Zofran Inj*) 4 mg IV Q6H PRN PRN Reason: NAUSEA Last Admin: 01/02/19 11:27 Dose: 4 mg Vital Signs - 8 hr 01/03/19 03:42 Temperature 96.9 F Pulse Rate 59 Respiratory 18 Rate Blood Pressure 146/70 (mmHg) O2 Sat by Pulse 98 Oximetry Oxygen Devices in Use Now: None Appearance: 58 yo obese F in nAD, AAOx3 Eyes: No Scleral Icterus, PERRLA Ears/Nose/Mouth/Throat: NL Teeth, Lips, Gums, Mucous Membranes Moist Neck: NL Appearance and Movements; NL JVP, Trachea Midline Respiratory: Symmetrical Chest Expansion and Respiratory Effort, Clear to Auscultation Cardiovascular: NL Sounds; No Murmurs; No JVD Abdominal: - - protruberant, soft,BS+, minimally tender in debbie-incision area. Midline incision with retention sutures in place and packing tape in between, RLQ insision ith WILIAM drain in place Lymphatic: No Cervical Adenopathy Extremities: - - trace pedal edema b/l Skin: No Nodules or Sclerosis Neurological: Alert and Oriented x 3, NL Muscle Strength and Tone Result Diagrams: 01/02/19 05:40 01/03/19 05:27 Additional Lab and Data: Lab Results 12/28/18 12/28/18 12/28/18 Range/Units 17:21 17:21 17:21 WBC 16.2 H (3.5-10.8) 10^3/ul RBC 4.94 (4.00-5.40) 10^6/ul Hgb 15.3 (12.0-16.0) g/dl Hct 46 (35-47) % MCV 92 (80-97) fL MCH 31 (27-31) pg MCHC 34 (31-36) g/dl RDW 14 (10.5-15) % Plt Count 322 (150-450) 10^3/ul MPV 7.6 (7.4-10.4) fL Neut % (Auto) 79.7 % Lymph % (Auto) 14.9 % [place] % (Auto) 4.5 % Eos % (Auto) 0.5 % Baso % (Auto) 0.4 % Absolute Neuts (auto) 12.9 H (1.5-7.7) 10^3/ul Absolute Lymphs (auto) 2.4 (1.0-4.8) 10^3/ul Absolute Monos (auto) 0.7 (0-0.8) 10^3/ul Absolute Eos (auto) 0.1 (0-0.6) 10^3/ul Absolute Basos (auto) 0.1 (0-0.2) 10^3/ul Absolute Nucleated RBC 0 10^3/ul Nucleated RBC % 0 INR (Anticoag Therapy) 0.95 (0.77-1.02) APTT 34.1 (26.0-36.3) seconds Sodium 136 (135-145) mmol/L Potassium 4.3 (3.5-5.0) mmol/L Chloride 97 L (101-111) mmol/L Carbon Dioxide 32 (22-32) mmol/L Anion Gap 7 (2-11) mmol/L BUN 11 (6-24) mg/dL Creatinine 0.62 (0.51-0.95) mg/dL Est GFR ( Amer) 118.8 (>60) Est GFR (Non-Af Amer) 98.2 (>60) BUN/Creatinine Ratio 17.7 (8-20) Glucose 132 H (70-100) mg/dL Lactic Acid (0.5-2.0) mmol/L Calcium 9.7 (8.6-10.3) mg/dL Total Bilirubin 0.60 (0.2-1.0) mg/dL AST 14 (13-39) U/L ALT 20 (7-52) U/L Alkaline Phosphatase 70 (34-104) U/L Troponin I 0.00 (<0.04) ng/mL C-Reactive Protein 40.20 H (<8.01) mg/L Total Protein 7.3 (6.4-8.9) g/dL Albumin 4.3 (3.2-5.2) g/dL Globulin 3.0 (2-4) g/dL Albumin/Globulin Ratio 1.4 (1-3) Lipase 11 (11.0-82.0) U/L Urine Color Urine Appearance Urine pH (5-9) Ur Specific [place] (1.010-1.030) Urine Protein (Negative) Urine Ketones (Negative) Urine Blood (Negative) Urine Nitrate (Negative) Urine Bilirubin (Negative) Urine Urobilinogen (Negative) Ur Leukocyte Esterase (Negative) Urine WBC (Auto) (Absent) Urine RBC (Auto) (Absent) Ur Squamous Epith Cells (Absent) Urine Bacteria (Absent) Urine Glucose (Negative) 12/28/18 12/28/18 Range/Units 19:10 19:58 WBC (3.5-10.8) 10^3/ul RBC (4.00-5.40) 10^6/ul Hgb (12.0-16.0) g/dl Hct (35-47) % MCV (80-97) fL MCH (27-31) pg MCHC (31-36) g/dl RDW (10.5-15) % Plt Count (150-450) 10^3/ul MPV (7.4-10.4) fL Neut % (Auto) % Lymph % (Auto) % [place] % (Auto) % Eos % (Auto) % Baso % (Auto) % Absolute Neuts (auto) (1.5-7.7) 10^3/ul Absolute Lymphs (auto) (1.0-4.8) 10^3/ul Absolute Monos (auto) (0-0.8) 10^3/ul Absolute Eos (auto) (0-0.6) 10^3/ul Absolute Basos (auto) (0-0.2) 10^3/ul Absolute Nucleated RBC 10^3/ul Nucleated RBC % INR (Anticoag Therapy) (0.77-1.02) APTT (26.0-36.3) seconds Sodium (135-145) mmol/L Potassium (3.5-5.0) mmol/L Chloride (101-111) mmol/L Carbon Dioxide (22-32) mmol/L Anion Gap (2-11) mmol/L BUN (6-24) mg/dL Creatinine (0.51-0.95) mg/dL Est GFR ( Amer) (>60) Est GFR (Non-Af Amer) (>60) BUN/Creatinine Ratio (8-20) Glucose (70-100) mg/dL Lactic Acid 1.5 (0.5-2.0) mmol/L Calcium (8.6-10.3) mg/dL Total Bilirubin (0.2-1.0) mg/dL AST (13-39) U/L ALT (7-52) U/L Alkaline Phosphatase (34-104) U/L Troponin I (<0.04) ng/mL C-Reactive Protein (<8.01) mg/L Total Protein (6.4-8.9) g/dL Albumin (3.2-5.2) g/dL Globulin (2-4) g/dL Albumin/Globulin Ratio (1-3) Lipase (11.0-82.0) U/L Urine Color Yellow Urine Appearance Cloudy Urine pH 5.0 (5-9) Ur Specific [place] 1.023 (1.010-1.030) Urine Protein Negative (Negative) Urine Ketones Negative (Negative) Urine Blood 2+ A (Negative) Urine Nitrate Negative (Negative) Urine Bilirubin Negative (Negative) Urine Urobilinogen Negative (Negative) Ur Leukocyte Esterase Negative (Negative) Urine WBC (Auto) Trace(0-5/hpf) (Absent) Urine RBC (Auto) 3+(>10/hpf) A (Absent) Ur Squamous Epith Cells Present A (Absent) Urine Bacteria Absent (Absent) Urine Glucose Negative (Negative) Microbiology and Other Data: Microbiology 12/28/18 19:10 Urine Culture - Final Urine Strep Group B Assess/Plan/Problems-Billing Assessment: 58 yo F with h/o CHARISSE, obesity, HTN, with ruptured appendicitis, s/p open appendectomy 12/29, went back to OR for wound dehiscence 12/30/18 - Patient Problems (1) Appendicitis Comment: s/p open appy on 12/29, wound dehiscence and back to OR for abd wound closure on 12/30/18 cont Zosyn Post op ileus slowly resolving (had a BM last night), on clears (2) HTN (hypertension) Comment: controlled off meds (3) CHARISSE (obstructive sleep apnea) Comment: cont CPAP (4) Fluid overload Comment: noted fluid retention in LE's and abdomen agree with a dose of IV Lasix as per surgery on 01/02/19, will tx with another dose today (5) DVT prophylaxis Comment: HSQ Status and Disposition: medicine consult
[2019-01-03] MEDS ORDERED: Potassium Chloride IV* 40 MEQ in NS 0.9% 250 ML* 250 ML IVPB ONE (08:30)
--- NOTE | 2019-01-03 11:17 | PN ---
Progress Note - Progress Note Date of Service: 01/03/19 SOAP: Subjective: Continues to feel better Had multiple loose BM's last night and passing flatus Continues to tolerate clears Pain adequately controlled Objective: Temp Pulse Resp BP Pulse Ox 96.9 F 66 16 144/86 98 01/03/19 08:05 01/03/19 08:05 01/03/19 08:05 01/03/19 08:05 01/03/19 08:05 Intake & Output 01/01/19 01/02/19 01/03/19 01/04/19 06:59 06:59 06:59 06:59 Intake Total 2364 2974 300 Output Total 1730 1175 2985 380 Balance 084 1799 -2685 -380 Intake: IV Fluids 994 2214 ABX - ZOSYN 322 NS (0.9%) 994 1892 IVPB 1250 100 ABX - ZOSYN 100 NS (0.9%) 1250 Oral 120 660 300 Output: WILIAM #1 580 615 185 80 Urine 7523 061 5662 300 Other: # Bowel Movements 1 Estimated Stool Amount Small PEX: Comfortable in chair Lungs clear with decreased breath sounds at bases Abd is protuberant but much softer-bowel sounds present, hyperactive but no high pitched or tinkling Wound is clean-serous drainage, packing changed. WILIAM with thin yellow serous fluid in bulb Ext with 1+ edema Assessment: S/P open appendectomy, return to OR for fascial dehiscence ileus-resolving Plan: Full liquids Lasix Wound care Saline lock IVF Pul toilet,subq heparin
[2019-01-03] MEDS: Ketorolac INJ* 30 MG/ML 1 ML VIAL IV PRN ×2 (12:53→22:36)
[2019-01-03] MEDS: Acetaminophen TAB* 325 MG PO PRN (12:53)
[2019-01-04] MEDS: Piperacillin/Tazobac ADVAN(*) 3.375 GM in NS 0.9% 100 ML* 100 ML IVPB SCH ×3 (05:22→18:09)
[2019-01-04] MEDS: Famotidine IV* 10 MG/ML 2 ML (20 mg) IV SCH ×2 (05:24→18:28)
[2019-01-04] MEDS: Heparin VIAL(*) 5000 UNITS/ML VIAL (FIVE THOUSAND) SUBCUT SCH ×3 (05:24→22:20)
[2019-01-04 06:33] LABS: BUN/Creatinine Ratio 13.7 (8-20); Calcium 8.1 mg/dL (8.6-10.3); EGFR African American 148.8 (>60); Magnesium 1.8 mg/dL (1.9-2.7); Potassium 3.4 mmol/L (3.5-5.0)
[2019-01-04] MEDS ORDERED: Magnesium Sulfate 2 GM IV* 2 GM/50 ML BAG IVPB ONE (07:40)
--- NOTE | 2019-01-04 12:01 | PN ---
Progress Note - Progress Note Date of Service: 01/04/19 Note: S: POD #5 & 4. On Zosyn. Pain managed well w/ Toradol. Nino full liqs well; would like to advance. Having mix of loose and formed stools. Ambulating. No SOB. O: Vital Signs - 8 hr 01/04/19 01/04/19 01/04/19 04:29 07:46 08:00 Temperature 97.8 F 97.4 F Pulse Rate 72 66 Respiratory 20 14 14 Rate Blood Pressure 141/91 142/72 (mmHg) O2 Sat by Pulse 98 99 Oximetry 01/04/19 11:32 Temperature 97.9 F Pulse Rate 77 Respiratory 14 Rate Blood Pressure 125/69 (mmHg) O2 Sat by Pulse 99 Oximetry Intake and Output Last 24 Hours 01/02/19 01/03/19 01/04/19 01/05/19 06:59 06:59 06:59 06:59 Intake Total 2974 300 1545 1236 Output Total 1175 2985 1975 340 Balance 4279 -9417 -430 896 Intake: IV Fluids 2214 155 96 ABX - ZOSYN 322 105 Magnesium 55 NS (0.9%) 1892 50 41 IVPB 100 ABX - ZOSYN 100 Oral 377 936 2719 1140 Output: WILIAM #1 615 185 175 40 Urine 560 2800 1600 300 Vasquez 200 Other: # Bowel Movements 1 Estimated Stool Amount Small PE: Gen: appears comfortable, sitting up in chair. Heart: reg Lungs: clear Abd: obese; retentions sutures in place; serous drainage on dsgs and around WILIAM; WILIAM w/ light, clear serous drainage. +BS. Soft, no sig tenderness. A/P: s/p lap converted to open appendectomy; return to OR for repair of abd wall dehiscence; doing well Wound packing changed (1/2" plain); dsgs changed; poss removal of WILIAM today? Adv diet. D/C planning (1-2 days).
[2019-01-04] MEDS: Ketorolac INJ* 30 MG/ML 1 ML VIAL IV PRN (12:54)
[2019-01-04] MEDS: Acetaminophen TAB* 325 MG PO PRN (12:55)
[2019-01-04] MEDS: Ketorolac INJ* 30 MG/ML 1 ML VIAL IV PUSH PRN (19:15)
--- NOTE | 2019-01-04 19:26 | PN ---
Subjective Date of Service: 01/04/19 Interval History: some minimal pain near drain and stitches diarrhea 4-7x a day but getting more firm. Denies chest pain, SOB, F/c/n/v, abdominal pain. afebrile, no acute overnight events. Objective Active Medications: Acetaminophen (Tylenol Tab*) 650 mg PO Q6H PRN PRN Reason: FEVER Last Admin: 01/04/19 12:55 Dose: 650 mg Albuterol/Ipratropium (Duoneb (Albuterol 2.5 Mg/Ipratropium 0.5 Mg)) 1 neb INH Q4H PRN PRN Reason: SOB/WHEEZING Famotidine (Pepcid Iv*) 20 mg IV Q12H [facility] Last Admin: 01/04/19 18:28 Dose: 20 mg Heparin Sodium (Porcine) (Heparin Vial(*)) 5,000 units SUBCUT Q8H [facility] Last Admin: 01/04/19 14:53 Dose: 5,000 units Piperacillin Sod/Tazobactam (Sod 3.375 gm/ Sodium Chloride) 100 mls @ 200 mls/ hr IVPB Q6H [facility] Last Admin: 01/04/19 18:09 Dose: 200 mls/hr Potassium Chloride (Potassium Chloride 20 Meq/100 Ml Ivpremix*) 20 meq in 100 mls @ 50 mls/hr IV Q2H [facility] Stop: 01/04/19 22:59 Ketorolac Tromethamine (Toradol Inj*) 30 mg IV PUSH Q6H PRN PRN Reason: PAIN Last Admin: 01/04/19 19:15 Dose: 30 mg Morphine Sulfate (Morphine Inj ((Syringe))*) 2 mg IV Q2H PRN PRN Reason: PAIN Last Admin: 01/02/19 17:43 Dose: 2 mg Ondansetron HCl (Zofran Inj*) 4 mg IV Q6H PRN PRN Reason: NAUSEA Last Admin: 01/02/19 11:27 Dose: 4 mg Vital Signs - 8 hr 01/04/19 01/04/19 11:32 15:26 Temperature 97.9 F 97.2 F Pulse Rate 77 72 Respiratory 14 18 Rate Blood Pressure 125/69 138/74 (mmHg) O2 Sat by Pulse 99 99 Oximetry Oxygen Devices in Use Now: None Appearance: NAD, sitting in chair. Eyes: No Scleral Icterus Ears/Nose/Mouth/Throat: NL Teeth, Lips, Gums Neck: NL Appearance and Movements; NL JVP Respiratory: Symmetrical Chest Expansion and Respiratory Effort, Clear to Auscultation Cardiovascular: NL Sounds; No Murmurs; No JVD, RRR Abdominal: - - morbidly obese, midline incision covered in gauze. nontender, no guarding. WILIAM drain with yellow drainage. Extremities: - - 1+ edema in LE Skin: No Rash or Ulcers Neurological: Alert and Oriented x 3, NL Sensation Nutrition: Taking PO's Result Diagrams: 01/02/19 05:40 01/04/19 05:47 Additional Lab and Data: Laboratory Results - last 24 hr 01/04/19 05:47 Sodium 140 Potassium 3.4 L Chloride 105 Carbon Dioxide 27 Anion Gap 8 BUN 7 Creatinine 0.51 Est GFR ( Amer) 148.8 Est GFR (Non-Af Amer) 123.0 BUN/Creatinine Ratio 13.7 Glucose 117 H Calcium 8.1 L Magnesium 1.8 L Microbiology and Other Data: Microbiology 12/30/18 16:10 Urine Urine Culture - Final No Growth (<1,000 CFU/mL) 12/28/18 19:10 Urine Urine Culture - Final Strep Group B Assess/Plan/Problems-Billing Assessment: 58 yo female with h/o CHARISSE, morbid obesity, HTN, p/w ruptured appendicitis, s/p open appendectomy 12/29, went back to OR for wound dehiscence 12/30/18. On zosyn. - Patient Problems (1) Appendicitis Current Visit: Yes Status: Acute Code(s): K37 - UNSPECIFIED APPENDICITIS SNOMED Code(s): 49136469 Comment: s/p open appy on 12/29, wound dehiscence and back to OR for abd wound closure on 12/30/18 cont Zosyn this day 6 advancing diet to regular unrestricted today. (2) DVT prophylaxis Current Visit: Yes Status: Acute Code(s): WCT3487 - SNOMED Code(s): 915047238 Comment: HSQ (3) Fluid overload Current Visit: Yes Status: Acute Code(s): E87.70 - FLUID OVERLOAD, UNSPECIFIED SNOMED Code(s): 73391868 Comment: reweigh patient. some trace edema in LE. start lasix 20mg po daily in AM. Is on HCTZ 12.5mg at home. (4) HTN (hypertension) Current Visit: Yes Status: Acute Code(s): I10 - ESSENTIAL (PRIMARY) HYPERTENSION SNOMED Code(s): 82820751 Comment: controlled off home meds of lisinopril 20/HCTZ 12.5mg. (5) CHARISSE (obstructive sleep apnea) Current Visit: Yes Status: Acute Code(s): G47.33 - OBSTRUCTIVE SLEEP APNEA ( ADULT) (PEDIATRIC) SNOMED Code(s): 11788271 Comment: cont CPAP Status and Disposition: medicine consult
[2019-01-04] MEDS: KCL 20 MEQ/100 ML IVPREMIX* 20 MEQ/100 ML BAG IV SCH ×2 (20:26→23:00)
[2019-01-05] MEDS: Piperacillin/Tazobac ADVAN(*) 3.375 GM in NS 0.9% 100 ML* 100 ML IVPB SCH ×2 (01:11→05:38)
[2019-01-05] MEDS: Heparin VIAL(*) 5000 UNITS/ML VIAL (FIVE THOUSAND) SUBCUT SCH (05:33)
[2019-01-05] MEDS: Famotidine IV* 10 MG/ML 2 ML (20 mg) IV SCH (05:34)
[2019-01-05] MEDS: Ketorolac INJ* 30 MG/ML 1 ML VIAL IV PUSH PRN (08:05)
[2019-01-05] MEDS ORDERED: Furosemide TAB* 20 MG PO SCH (09:00)
[2019-01-05 09:22] VITALS: BP 127/57
--- NOTE | 2019-01-05 10:34 | PN ---
Progress Note - Progress Note Date of Service: 01/05/19 Note: S: POD # 7 & 6. Doing well; would like to go home. Seen w/ Dr. Cruz. Nino diet. +BMs. Ambulating. Denies SOB. O: Vital Signs - 8 hr 01/05/19 01/05/19 01/05/19 03:50 07:46 08:00 Temperature 97.3 F 97.5 F Pulse Rate 76 67 Respiratory 17 15 20 Rate Blood Pressure 146/87 127/57 (mmHg) O2 Sat by Pulse 99 100 Oximetry Intake and Output Last 24 Hours 01/03/19 01/04/19 01/05/19 01/06/19 06:59 06:59 06:59 06:59 Intake Total 300 1545 2766 Output Total 2985 1975 1525 Balance -2685 -430 1241 Weight 286 lb Intake: IV Fluids 155 206 ABX - ZOSYN 105 110 Magnesium 55 NS (0.9%) 50 41 Oral 300 1390 2560 Output: WILIAM #1 185 175 125 Urine 2800 1600 1400 Vasquez 200 Other: # Bowel Movements 1 0 Estimated Stool Amount Small Gen: sitting up; appears comfortable Heart: reg Lungs: clear Abd: obese; WILIAM: light clear serous drainage-> d/c'd; midline incision: clean; small to moderate amts of serosang drainage on dsgs; repacked w/ saline-moist 1/ 2" packing. Nino well. Extr: 1+ edema A: s/p laparoscopic converted to open appendectomy, with return to OR for repair of dehiscence, doing well and ready for d/c home. No further abx needed. She will resume her usual home meds. Office f/u w/ Dr. Cruz 01/12/19.
--- NOTE | 2019-01-05 11:31 | DS ---
AMENDED REPORT NOW INCLUDES DESIGNATED COSIGNER - ESIGNED BEFORE ADJUSTMENTS CC: Dr. Victoria at [facility].* DISCHARGE SUMMARY: DATE OF ADMISSION: 12/30/18 DATE OF DISCHARGE: 01/05/19. ATTENDING SURGEON: Don Cruz MD.* (DICTATED BY JANETH LUND) HOSPITAL COURSE: Please refer to admission history and physical and operative notes from 12/29/18 and 12/30/18 for details. The patient was admitted with a clinical history, exam, and imaging that was felt to be consistent with acute appendicitis. She was taken to the operating room on 12/29/18, at which she underwent laparoscopy, which was converted to laparotomy with appendectomy and primary closure. However, she had dehiscence of the midportion of the midline incision and was taken back to the operating room on 12/30/18, at which time wound was reclosed utilizing retention sutures as well as interrupted fascial sutures. A Mike-Buck Drain was left in place. She was covered perioperatively with IV Zosyn up until the morning of discharge. She had been also followed by the hospitalist service. As of the morning of discharge, she has tolerated diet well and having minimal pain. She is afebrile and vital signs were stable. The Mike- Buck Drain was draining moderate amounts of clear serous appearing fluid and was thus removed. The midline wound was repacked with half-inch saline moistened plain packing in between the retention sutures. Abdominal exam reveals mild tenderness only as well as healing laparoscopic port sites with lisbeth intact. Extremities were notable for 1+ edema. The patient was seen with Dr. Cruz the morning of discharge. Instructions were reviewed regarding wound care, diet, and activity. She will have a home nurse beginning on 01/07/19 and directions were written for wound care and packing changes. She has a followup appointment scheduled with Dr. Cruz in the office on 01/12/19. It was not felt that she needed any additional antibiotics. She will resume her usual home medications. JANETH LUND [id number]/[facility] #: [id number] [facility]
== END 2019-01-05 11:15 | disposition home health service (06) | DRG 339 ==
LOC: ED 14:06 → SSU 22:40 → OBSVTOIN 12-30 12:00
PROVIDERS: ADMIT Surgery; ATTEND Surgery
PROC: 0DJD4ZZ Inspection of Lower Intestinal Tract, Percutaneous Endoscopic Approach (ICD-10-PCS; 2018-12-29)
PROC: 0WQF0ZZ Repair Abdominal Wall, Open Approach (ICD-10-PCS; 2018-12-29)
PROC: 5A09357 Assistance with Respiratory Ventilation, Less than 24 Consecutive Hours, Continuous Positive Airway Pressure (ICD-10-PCS; 2018-12-29)
PROC: 0DTJ0ZZ Resection of Appendix, Open Approach (ICD-10-PCS; principal; 2018-12-29 15:00)
PROC: 0WQF0ZZ Repair Abdominal Wall, Open Approach (ICD-10-PCS; 2018-12-30)
DX: K35.32 Acute appendicitis with perforation, localized peritonitis, and gangrene, without abscess (principal); Z68.42 Body mass index [BMI] 45.0-49.9, adult; N39.0 Urinary tract infection, site not specified; K56.7 Ileus, unspecified; T81.31XA Disruption of external operation (surgical) wound, not elsewhere classified, initial encounter; K42.0 Umbilical hernia with obstruction, without gangrene; Z88.1 Allergy status to other antibiotic agents; Y92.239 Unspecified place in hospital as the place of occurrence of the external cause; Y83.8 Other surgical procedures as the cause of abnormal reaction of the patient, or of later complication, without mention of misadventure at the time of the procedure; E87.70 Fluid overload, unspecified; R40.2412 Glasgow coma scale score 13-15, at arrival to emergency department; E66.01 Morbid (severe) obesity due to excess calories; F17.210 Nicotine dependence, cigarettes, uncomplicated; G47.33 Obstructive sleep apnea (adult) (pediatric); I10 Essential (primary) hypertension; Z98.84 Bariatric surgery status; Z88.0 Allergy status to penicillin; Z82.49 Family history of ischemic heart disease and other diseases of the circulatory system; Z53.31 Laparoscopic surgical procedure converted to open procedure
CPT/HCPCS: 36415; 74177; 76830; 80048; 80053; 81003; 81015; 83605; 83690; 83735; 84100; 84484; 85025; 85027; 85610; 85730; 86140; 87086; 87088; 88304; 93005; 94640; 94660; 99284; A9270-GY; C1776; G0378; J0330; J1644; J1885; J1940; J2250; J2270; J2405; J2543; J2704; J3010; J3475; J3480; J3490; Q9967

== ENCOUNTER 2019-07-31 08:59 | Emergency (ER) | payer MEDICARE ==
[2019-07-31 09:09] VITALS: BP 139/86
--- NOTE | 2019-07-31 09:55 | ED ---
Skin Complaint - HPI Summary HPI Summary: This pt is a 59 y/o [place] [facility] [place] to bilateral groin folds x2 weeks, worse on the left. Pt states her rash began a couple of weeks ago when she was moving around a lot and became diaphoretic. She notes this rash subsided but never really resolved. She presents today c/o left groin rash and bump, that is described as red and painful. Denies fever, chills. Allergic to Cipro and Penicillin. - History of Current Complaint Chief Complaint: EDRashSkinAbscess Time Seen by Provider: 07/31/19 09:40 Stated Complaint: RASH AND CYST LT LEG PER PT Hx Obtained From: Patient Onset/Duration: Started Weeks Ago, Still Present Skin Exposure Onset/Duration: Weeks Ago Timing: Lasting Weeks Current Severity: Moderate Pain Intensity: 8 Pain Scale Used: 0-10 Numeric Skin Location: Other: - Left groin Character: Pain, Redness, Painful Aggravating Symptom(s): Nothing Alleviating Symptom(s): Nothing Associated Signs & Symptoms: Negative - fever, chills, Rash - Additional Pertinent History Primary Care Physician: [id number] - Allergy/Home Medications Allergies/Adverse Reactions: Allergies Allergy/AdvReac Type Severity Reaction Status Date / Time ciprofloxacin [From Cipro] Allergy Hives Verified 07/31/19 09:08 Penicillins Allergy ink Verified 07/31/19 09:08 PMH/Surg Hx/FS Hx/Imm Hx Endocrine/Hematology History: Denies: Hx Diabetes Cardiovascular History: Reports: Hx Hypertension, Other Cardiovascular Problems/ Disorders - "Edema in my legs" Respiratory History: Reports: Hx Chronic Obstructive Pulmonary Disease (COPD), Hx Sleep Apnea GI History: Reports: Hx Diverticulosis, Hx Hiatal Hernia, Other GI Disorders - lap band Denies: Hx Gastroesophageal Reflux Disease, Hx Jaundice History: Denies: Hx Dialysis, Hx Kidney Infection, Hx Kidney Stones, Hx Renal Disease Musculoskeletal History: Reports: Hx Arthritis, Hx Back Problems Sensory History: Reports: Hx Contacts or Glasses Denies: Hx Eye Prosthesis, Hx Legally Blind, Hx Deafness, Hx Hearing Aid Opthamlomology History: Reports: Hx Contacts or Glasses Denies: Hx Eye Prosthesis, Hx Legally Blind Neurological History: Reports: Hx Migraine, Other Neuro Impairments/Disorders - "My arms go numb, degenerative disc disease" Denies: Hx Dementia Psychiatric History: Denies: Hx Autism - Surgical History Surgical History: Yes Surgery Procedure, Year, and Place: [place] [facility] [place] vein [place],. brst reduction Hx Anesthesia Reactions: Yes - nausea Infectious Disease History: No Infectious Disease History: Denies: Hx Hepatitis, Traveled Outside the [place] in Last 30 Days - Family History Known Family History: Positive: Cardiac Disease Family History: Cancer - Social History Alcohol Use: None Substance Use Type: Reports: None Smoking Status (MU): Heavy Every Day Tobacco Smoker Type: Cigarettes Length of Time of Smoking/Using Tobacco: 35 Have You Smoked in the Last Year: Yes Review of Systems Negative: Fever, Chills ENT: Negative Cardiovascular: Negative Respiratory: Negative Skin: Other - POSITIVE: redness in left groin Positive: Rash All Other Systems Reviewed And Are Negative: Yes Physical Exam - Summary Physical Exam Summary: Appearance: The patient is well-nourished in no acute distress and in no acute pain. Skin: The skin is warm and dry. Erythematous rash in her left groin with firm node under it, there are no lesions. HEENT: The head is normocephalic and atraumatic. The pupils are equal and reactive. The conjunctivae are clear and without drainage. Nares are patent and without drainage. Mouth reveals moist mucous membranes, and the throat is without erythema and exudate. The external ears are intact. The ear canals are patent and without drainage. The tympanic membranes are intact. Neck: The neck is supple with full range of motion and non-tender. There are no carotid bruits. There is no neck vein distension. Respiratory: Chest is non-tender. Lungs are clear to auscultation and breath sounds are symmetrical and equal. Cardiovascular: Heart is regular rate and rhythm. There is no murmur or rub auscultated. There is no peripheral edema and pulses are symmetrical and equal. Abdomen: The abdomen is soft and non-tender. There are normal bowel sounds heard in all four quadrants and there is no organomegaly palpated. Musculoskeletal: There is no back tenderness noted. Extremities are non-tender with full range of motion. There is good capillary refill. There is no peripheral edema or calf tenderness elicited. Neurological: Patient is alert and oriented to person, place and time. The patient has symmetrical motor strength in all four extremities. Cranial nerves are grossly intact. Deep tendon reflexes are symmetrical and equal in all four extremities. Psychiatric: The patient has an appropriate affect and does not exhibit any anxiety or depression. Triage Information Reviewed: Yes Vital Signs On Initial Exam: Initial Vitals Temp Pulse Resp BP Pulse Ox 98.2 F 82 18 139/86 95 07/31/19 09:03 07/31/19 09:03 07/31/19 09:03 07/31/19 09:03 07/31/19 09:03 Vital Signs Reviewed: Yes Diagnostics - Vital Signs Vital Signs Temp Pulse Resp BP Pulse Ox 07/31/19 09:03 98.2 F 82 18 139/86 95 - Laboratory Lab Statement: Any lab studies that have been ordered have been reviewed, and results considered in the medical decision making process. Course/Dx - Course Course Of Treatment: Ms. Morris is complaining of a painful rash in her left groin and under her panniculus. This morning she felt a lump and was concerned. She is nontoxic in appearance with stable vitals. Clinically her rash looks like candidiasis although I don't see any satellite lesions. She has a firm nodule under the rash which I believe is likely a lymph node rather than an abscess. Because this may be bacterial I'm going to give her one dose of Diflucan as well as a course of doxycycline. She is allergic to penicillins. - Diagnoses Provider Diagnoses: Lymphadenopathy, Skin yeast infection Discharge ED - Sign-Out/Discharge Documenting (check all that apply): Patient Departure - Discharge home Patient Received Moderate/Deep Sedation with Procedure: No - Discharge Plan Condition: Stable Disposition: HOME Prescriptions: DOXYcycline CAP(*) [DOXYcycline 100MG CAP(*)] 100 mg PO BID #10 cap Fluconazole 100 MG TAB* [Diflucan 100 MG TAB*] 100 mg PO DAILY #1 tab Patient Education Materials: Lymphadenopathy (ED), Skin Yeast Infection (ED) Referrals: Ana Maria Victoria MD [Primary Care Provider] - Additional Instructions: Follow up with your primary care provider in 2-3 days. RETURN TO THE ED FOR ANY WORSENING OR NEW SYMPTOMS. - Billing Disposition and Condition Condition: STABLE Disposition: Home - Attestation Statements Document Initiated by Scribe: Yes Documenting Scribe: Maribell Nolan Provider For Whom Scribe is Documenting (Include Credential): Blake Shaw MD Scribe Attestation: Maribell Garrett, scribed for Blake Shaw MD on 07/31/19 at 1417. Scribe Documentation Reviewed: Yes Provider Attestation: The documentation as recorded by the scribe, Maribell Nolan accurately reflects the service I personally performed and the decisions made by me, Blake Shaw MD Status of Scribe Document: Viewed
--- OUTSIDE RECORDS SUMMARY | 2019-07-31 10:20 | XMS REPORT | Summary of Care ---
:1960 Author Organization [facility] Address [address] [place] JANETH Suarez [address] Care Team Providers Name Role Phone Ana Maria Victoria MD Primary Care Provider Reason for Referral Refer to Department Only (Routine) Status Reason Specialty Diagnoses / Referred By Referred To Procedures Contact Contact Pending Review PODIATRY Diagnoses Type 2 diabetes mellitus without complication, without long-term current use of insulin (HCC) Pain in both feet Ana Maria Victoria MD [address] [place] [address] Reason for Visit Reason Comments Check Up Encounter Details Date Type Department Care Team Description 06/30/2019 Office Visit [facility] [[email or web address]] Julien Essential hypertension ( Primary Dx); Practice Ana Maria Power MD Type 2 diabetes mellitus without complication, without long-term current use of insulin (HCC); [facility] [address] Chronic pain due to trauma; [place], [place] [id number] [place] [address] Mixed hyperlipidemia; [phone] Arthritis; Pain in both feet; Other chronic pain; Degenerative disc disease, thoracic Allergies Active Allergy Reactions Severity Noted Date Comments Penicillin G Hives Medium 10/11/2011 documented as of this encounter (statuses as of 06/30/2019) Medications Medication Sig Dispensed Refills Start Date End Date Status mupirocin Apply to 30 g 1 10/22/2018 Active (BACTROBAN) 2 % wounds on Apply externally right lower OintmentIndications: leg Cellulitis of right lower extremity lisinopril-hydrochlo Take 1 Tab 90 Tab 3 11/27/2018 Active rothiazide by mouth (ZESTORETIC, DAILY. PRINZIDE) 20-12.5 MG Oral TabIndications: Essential hypertension venlafaxine (EFFEXOR Take 1 Cap 90 Cap 3 11/27/2018 Active XR) 150 MG Oral by mouth CAPSULE SR 24 DAILY. HRIndications: Anxiety metFORMIN Take 1 Tab 30 Tab 3 06/30/2019 Active (GLUCOPHAGE XR) 500 by mouth MG Oral TABLET SR 24 DAILY. HRIndications: Type 2 diabetes mellitus without complication, without long-term current use of insulin (HCC) atorvastatin Take 1 Tab 30 Tab 3 06/30/2019 Active (LIPITOR) 10 MG Oral by mouth TabIndications: DAILY. Mixed hyperlipidemia HYDROcodone-acetamin Take 1 Tab 60 Tab 0 06/30/2019 Active ophen (NORCO) by mouth 7.5-325 MG Oral EVERY SIX TabIndications: HOURS Other chronic pain, NEEDED Degenerative disc (pain). Max disease, thoracic Daily Amount: 4 Tabs. ergocalciferol Take 1 Cap 90 Cap 0 03/30/2019 Discontinued (DRISDOL, by mouth 9 (Insurance CALCIFEROL, VITAMIN DAILY. Formulary Change) D) 14150 units Oral CapIndications: Vitamin D deficiency HYDROcodone-acetamin Take 1 Tab 60 Tab 0 03/30/2019 Discontinued ophen (NORCO) by mouth 9 (Reorder) 7.5-325 MG Oral EVERY SIX TabIndications: HOURS Other chronic pain, NEEDED Degenerative disc (pain). Max disease, thoracic Daily Amount: 4 Tabs. amphetamine-dextroam Take 1 Tab 0 Discontinued phetamine (ADDERALL, by mouth 9 5MG,) 5 MG Oral Tab DAILY. documented as of this encounter (statuses as of 06/30/2019) Active Problems Problem Noted Date Type 2 diabetes mellitus without complication, without long-term current 04/01 use of insulin Vitamin D deficiency 03/30/2019 Controlled substance agreement signed 11/27/2018 Obstructive chronic bronchitis with exacerbation 05/24/2014 Depressed 09/09/2013 Hematuria 06/24/2013 Overview: In all urines tested- Follow up at 09/15 visit BMI 40.0-44.9, adult 03/26/2012 Overview: Status post lab band Status following gastric banding surgery for weight loss 03/26/2012 CHARISSE (obstructive sleep apnea) 10/24/2011 Overview: Has diagnosis but does not use mask and has lost weight History of migraine headaches 10/13/2011 Overview: Resolved 06/15 History of vertigo 10/13/2011 History of carpal tunnel syndrome 10/13/2011 Hypertension 10/11/2011 Adult ADHD 10/11/2011 DJD (degenerative joint disease) of cervical spine 10/11/2011 Degenerative disc disease, thoracic COPD (chronic obstructive pulmonary disease) Degenerative disc disease, cervical Anxiety Overview: controlled on Effexor CHARISSE on CPAP Chronic pain documented as of this encounter (statuses as of 06/30/2019) Immunizations Name Administration Dates Next Due PNEUMOCOCCAL POLYSACCHARIDE VACCINE 11/27/2018 documented as of this encounter Social History Tobacco Use Types Packs/Day Years Used Date Former Smoker 0.5 45 Smokeless Tobacco: Never Used Comments: down from 1 ppd, using chantix Alcohol Use Drinks/Week oz/Week Comments No Sex Assigned at Date Recorded Not on file Job Start Date Occupation Industry Not on file Not on file Not on file Travel History Travel Start Travel End No recent travel history available. documented as of this encounter Last Filed Vital Signs Vital Sign Reading Time Taken Comments Blood Pressure 125/80 06/30/2019 10:35 AM EDT Pulse 77 06/30/2019 9:57 AM EDT Temperature - - Respiratory Rate - - Oxygen Saturation 96% 06/30/2019 9:57 AM EDT Inhaled Oxygen Concentration - - Weight 122 kg (269 lb) 06/30/2019 9:57 AM EDT Height 163.8 cm (5' 4.5") 06/30/2019 9:57 AM EDT Body Mass Index 45.46 06/30/2019 9:57 AM EDT documented in this encounter Patient Instructions Patient InstructionsAna Maria Victoria MD - 06/30/2019 10:00 AM EDTI recommend you get over the counter calcium with vitamin D3 I recommend vitamin D3 1000 units daily You have early diabetes: Start metformin ER 500 mg once a day You cholesterol is high: please start atorvastatin 10 mg daily Please check your A1C and urine micro albumin test today. Please return for fasting in 3 months and follow up a week later. If you feel you need Adderall, I can refer you to a psychiatrist. I otherwise do not recommend this given your hypertension. documented in this encounter Progress Notes Ana Maria Victoria MD - 06/30/2019 10:00 AM EDT Nursing Notes: Joyce Lopez LPN 06/30/2019 10:03 AM Signed Chief Complaint Patient presents with Check Up Search Terms: Samantha Morris, 1960 Search Date: 06/30/2019 10:03:06 AM Searching on behalf of: [id number] - Ana Maria Victoria The Drug Utilization Report below displays all of the controlled substance prescriptions, if any, that your patient has filled in the last twelve months. The information displayed on this report is compiled from pharmacy submissions to the Department, and accurately reflects the information as submitted by the pharmacies. This report was requested by: Joyce Lopez | Reference #: [id number] Ana Maria Victoria's Prescriptions Patient Name: Samantha Morris Date: 1960 Address: [address] [place] [address] Sex: Male Rx Written Rx Dispensed Drug Quantity Days Supply Prescriber Name Payment Method Dispenser 03/30/2019 04/05/2019 hydrocodone-acetaminophen 7.5-325 mg tablet 48 12 Ana Maria Victoria MD Insurance [employer] #07 11/27/2018 11/27/2018 hydrocodone-acetaminophen 7.5-325 mg tablet 60 15 Ana Maria Victoria MD Insurance [employer] #07 Others' Prescriptions Patient Name: Samantha Morris Date: 1960 Address: [address] [place] [address] Sex: Male Rx Written Rx Dispensed Drug Quantity Days Supply Prescriber Name Payment Method Dispenser 02/02/2019 02/02/2019 hydrocodone-acetaminophen 7.5-325 mg tablet 60 15 Dai Donald NP Insurance [employer] #07 01/12/2019 01/12/2019 oxycodone-acetaminophen 5-325 mg tablet 10 3 Don Cruz MD [employer] #07 10/22/2018 10/22/2018 hydrocodone-acetaminophen 7.5-325 mg tablet 42 10 Dai Donald NP [employer] #07 * - Drugs marked with an asterisk are compound drugs. If the compound drug is made up of more than one controlled substance, then each controlled substance will be a separate row in the table. Chief Complaint: Samantha Morris is a 59-y.o. female who presents for follow up chronic pain, hypertension, CHARISSE and Depression, and diabetes History of Present Illness/ROS: Here for med refills and recheck. Her last A1C was up indicating she has diabetes. Metformin and a statin are recommended. She asked about laboratory tests for her arthritis. She is fasting today. She reports today she has ADHD and was on adderal today. She wants tthis today : Declined. She would like to see a javascript engineer She is moving to [place] so diet has been off thsi last week during the move, but is not starting her diet. She reported last visit: Her knees had ached after her long illness if December. Hard to walk. Take glucosamine-liliana complex Has handicap sticker for neck and back pain. Can walk 200 ft then has to stop. Did not find old records: Says they are in storage in [place] and she thinks are water damaged. I checked Care everywhere and one of her prior hospitals is not on it, the other has not MRI records. She reports chronic neck and back pain and requested hydrocodone. She was originally diagnosed while living in [place] in early 1999's, had Xrays and MRI's there. She moved to [facility] and saw Dr Sol here for this 2010- 2014. She then moved back to [place] for a few years. She has now moved back to this area. 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 Prior records of Dr Sol reviewed. She does not have her interim records with her but will bring them when she unpacks the boxes they are in. 2008 had a walker, progressed to cane, now off a cane. Her evaluation was in [place] years ago. She is on cpap for CHARISSE. She has not taken alprazolam in a long time and In informed her she may not have it when on opioids. I stopped it at her first visit with me. Rules of opioid management discussed at her November visit with me. She has a opioid agreement on file. She had Lap-Band surgery years ago in [facility] in 2006 or so. She saw [facility] once in March2012 for follow up. She has not had, nor desires, bariatric follow up since Review of Systems - General ROS: negative for - chills or fever, unexpected weight changes ENT ROS: negative for - headaches, visual changes Respiratory ROS: negative for - cough, shortness of breath Cardiovascular ROS: negative for - chest pain, dyspnea on exertion, edema or palpitations Gastrointestinal ROS: no abdominal pain, change in bowel habits, or black or bloody stools Neuro: denies headache, focal weakness, feet ache and tingle at times Psych: Denies depression, doing well on Effexor for her anxiety Muscular: Knees ache, back pain is controlled with hydrocodone, but cannot walk over 200 feet without stopping. Lab Results Component Value Date GLYCO 6.5 (H) 03/30/2019 GLYCO 6.1 (H) 03/17/2012 Office Visit on 03/30/2019 Component Date Value Ref Range Status Sodium 03/30/2019 141 134 - 145 mmol/L Final Potassium 03/30/2019 4.2 3.5 - 5.1 mmol/L Final Chloride 03/30/2019 102 98 - 107 mmol/L Final CO2 03/30/2019 29 22 - 30 mmol/L Final Calcium 03/30/2019 9.1 8.3 - 10.1 mg/dl Final Albumin 03/30/2019 4.0 3.5 - 5.0 g/dl Final BUN 03/30/2019 12 7 - 17 mg/dl Final Creatinine 03/30/2019 0.6* 0.7 - 1.2 mg/dl Final Glucose 03/30/2019 119* 70 - 99 mg/dl Final Total Protein 03/30/2019 7.5 6.3 - 8.2 g/dl Final Total Bilirubin 03/30/2019 0.5 0.0 - 1.1 MG/DL Final AST 03/30/2019 25 15 - 46 U/L Final ALT 03/30/2019 28 9 - 52 U/L Final Alkaline Phosphatase 03/30/2019 83 40 - 150 U/L Final eGFR 03/30/2019 >60 See Interpretation Below ml/min/1.73ml Sq Final Estimated GFR Interpretation: Above 60ml/min/1.73m2 = Normal Renal Function 30-59 ml/min/1.73m2 = Stage 3 Chronic Kidney Disease 15-29 ml/min/1.73m2 = Stage 4 Chronic Kidney Disease Less than 15 ml/min/1.73m2 = Stage 5 Chronic Kidney Disease The GFR value is calculated using the Modification of Diet in Renal Disease ( MDRD) Study Equation which can be found at: https://www.kidney.org/content/zlyl-jieih-twdlddjl BUN/Creatinine Ratio 03/30/2019 20 6 - 22 RATIO Final Anion Gap 03/30/2019 10 3 - 11 mmol/L Final A/G Ratio 03/30/2019 1.1 0.8 - 2.0 ratio Final Cholesterol 03/30/2019 256* <200 mg/dl Final HDL Cholesterol 03/30/2019 37* >50 mg/dl Final Triglycerides 03/30/2019 150* <150 mg/dl Final LDL Cholesterol 03/30/2019 189* <100 MG/DL Final Cholesterol / HDL Ratio 03/30/2019 6.9 RATIO Final LDL / HDL Ratio 03/30/2019 5.1 Final Non-HDL Cholesterol 03/30/2019 219* 0 - 130 MG/DL Final WBC Count 03/30/2019 10.02 3.98 - 10.04 K/uL Final Methodology was changed 11/05/2018. Please note updated reference range and units. RBC Count 03/30/2019 4.67 3.93 - 5.22 M/UL Final Hemoglobin 03/30/2019 14.0 11.2 - 15.7 G/DL Final Hematocrit 03/30/2019 43.5 34.1 - 44.9 % Final MCV 03/30/2019 93.1 79.4 - 94.8 FL Final MCH 03/30/2019 30.0 25.6 - 32.2 PG Final MCHC 03/30/2019 32.2 32.2 - 35.5 g/dL Final Platelet Count 03/30/2019 351 182 - 369 K/uL Final MPV 03/30/2019 9.9 9.4 - 12.3 FL Final RDW 03/30/2019 14.7* 11.7 - 14.4 % Final Glycohemoglobin A1C 03/30/2019 6.5* <=5.6 % Final Normal*: <=5.6% Pre Diabetes* Risk: 5.7-6.4% Diabetes* Risk: >=6.5% Glycemic Goals for Adult Diabetes*: <7.0% *(Adult Ranges)[place] Diabetes Association, Standards of Medical Care in Diabetes, 2018 Past Medical History: Diagnosis Date Anxiety controlled on Effexor Arthritis Back pain Chronic pain neck and back COPD (chronic obstructive pulmonary disease) (HCC) Degenerative disc disease, cervical Degenerative disc disease, thoracic Edema GERD (gastroesophageal reflux disease) Hx of cardiovascular stress test 2013 negative dobutamine stress echo Hx of diverticulitis of colon Morbid obesity ([facility]) CHARISSE (obstructive sleep apnea) not using CPAP CHARISSE on CPAP Postmenopausal Psoriasis EYAD (stress urinary incontinence, female) Unspecified essential hypertension Venous insufficiency Past Surgical History: Procedure Laterality Date APPENDECTOMY 12/2018 CLASSICAL [place] LAP, PLACE ADJUST MICHAEL RESTRICT DEVICE 2007 [place] - Dr. [place] UNLISTED PROCEDURE, VASCULAR SURGERY TONSILLECTOMY Current Outpatient Medications: atorvastatin (LIPITOR) 10 MG Oral Tab, Take 1 Tab by mouth DAILY., Disp : 30 Tab, Rfl: 3 HYDROcodone-acetaminophen (NORCO) 7.5-325 MG Oral Tab, Take 1 Tab by mouth EVERY SIX HOURS NEEDED (pain). Max Daily Amount: 4 Tabs., Disp: 60 Tab , Rfl: 0 lisinopril-hydrochlorothiazide (ZESTORETIC, PRINZIDE) 20-12.5 MG Oral Tab, Take 1 Tab by mouth DAILY., Disp: 90 Tab, Rfl: 3 metFORMIN (GLUCOPHAGE XR) 500 MG Oral TABLET SR 24 HR, Take 1 Tab by mouth DAILY., Disp: 30 Tab, Rfl: 3 mupirocin (BACTROBAN) 2 % Apply externally Ointment, Apply to wounds on right lower leg, Disp: 30 g, Rfl: 1 venlafaxine (EFFEXOR XR) 150 MG Oral CAPSULE SR 24 HR, Take 1 Cap by mouth DAILY., Disp: 90 Cap, Rfl: 3 Allergies Allergen Reactions Penicillin G Hives Social History Socioeconomic History Marital status: Single Spouse name: Not on file Number of children: Not on file Years of education: Not on file Highest education level: Not on file Occupational History 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 Social Needs Financial resource strain: Not on file Food insecurity: Worry: Not on file Inability: Not on file Transportation needs: Medical: Not on file Non-medical: Not on file Tobacco Use Smoking status: Former Smoker Packs/day: 0.50 Years: 45.00 Pack years: 22.50 Smokeless tobacco: Never Used Tobacco comment: down from 1 ppd, using chantix Substance and Sexual Activity Alcohol use: No Drug use: No Sexual activity: Not on file Lifestyle Physical activity: Days per week: Not on file Minutes per session: Not on file Stress: Not on file Relationships Social connections: Talks on phone: Not on file Gets together: Not on file Attends mandaeism service: Not on file Active member of club or organization: Not on file Attends meetings of clubs or organizations: Not on file Relationship status: Not on file Intimate partner violence: Fear of current or ex partner: Not on file Emotionally abused: Not on file Physically abused: Not on file Forced sexual activity: Not on file Other Topics Concern Not on file Social History Narrative Lives alone, just moved to [place] Pets: Cat, dog Not working Family History Problem Relation Age of Onset Heart Mother 74 [place] Cancer Father lung cancer No Known Problems Brother No Known Problems Daughter No Known Problems Brother No Known Problems Brother No Known Problems Brother PHYSICAL EXAMINATION: BP 125/80 | Pulse 77 | Ht 5' 4.5" (1.638 m) | Wt 269 lb (122 kg) | SpO2 96% | ? No | BMI 45.46 kg/m Physical Examination: General appearance - alert, well appearing, and in no distress Mental status - alert, oriented to person, place, and time, normal mood, behavior, speech, dress, motor activity, and thought processes Eyes - pupils equal, sclera anicteric Neck - supple, no cervical or supraclavicular adenopathy, carotids upstroke normal bilaterally, no bruits, thyroid exam: thyroid is normal in size without nodules or tenderness, no neck masses palpated. Chest/Lungs - clear to auscultation, no wheezes, rales or rhonchi, symmetric air entry, good aeration Heart - normal rate, regular rhythm, normal S1, S2, no murmurs, rubs, clicks or gallops Abdomen - soft, non tender on palpation, nondistended, no masses or hepatosplenomegaly, bowel soundsnormal, normal to percussion, no guarding or rebound. Mid line surgical scars well healed. No costervertebral angle tenderness Neurological - alert, oriented, normal speech, no gross focal findings or movement disorder noted Extremities - dorsalis pedis pulses normal, no pedal edema, no clubbing or cyanosis Left foot Diabetic foot exam: Visual exam: normal Sensory: Filament test: present Pulse: a pulse was present Right foot diabetic exam Visual exam: normal Sensory: Filament test: present Pulse: a pulse was present ASSESSMENT/PLAN: ICD-9-CM ICD-10-CM 1. Essential hypertension 401.9 I10 COMPREHENSIVE METABOLIC PANEL 2. Type 2 diabetes mellitus without complication, without long-term current use of insulin (HCC) 250.00 E11.9 metFORMIN (GLUCOPHAGE XR) 500 MG Oral TABLET SR 24 HR GLYCOHEMOGLOBIN A1C REFER TO PODIATRY GLYCOHEMOGLOBIN A1C MICROALBUMIN, RANDOM URINE W/ CREATININE 3. Chronic pain due to trauma 338.21 G89.21 4. Mixed hyperlipidemia 272.2 E78.2 atorvastatin (LIPITOR) 10 MG Oral Tab LIPID PROFILE 5. Arthritis 716.90 M19.90 RHEUMATOID FACTOR ANTI NUCLEAR ANTIBODY CYCLIC CITRULLINE PEPTIDE ANTIBODY IGG 6. Pain in both feet 729.5 M79.671 REFER TO PODIATRY M79.672 7. Other chronic pain 338.29 G89.29 HYDROcodone-acetaminophen (NORCO) 7.5-325 MG Oral Tab small supply of medication given - advised she needs to follow up with MD to establish PCP soon 8. Degenerative disc disease, thoracic 722.51 M51.34 HYDROcodone-acetaminophen ( NORCO) 7.5-325 MG Oral Tab Controlled substance contract signed in November Urine drug screen done in November. Laboratory tests above ordered. Refills sent. Patient Instructions I recommend you get over the counter calcium with vitamin D3 I recommend vitamin D3 1000 units daily You have early diabetes: Start metformin ER 500 mg once a day You cholesterol is high: please start atorvastatin 10 mg daily Please check your A1C and urine micro albumin test today. Please return for fasting in 3 months and follow up a week later. If you feel you need Adderall, I can refer you to a psychiatrist. I otherwise do not recommend this given your hypertension. Author: Ana Maria Victoria MD 06/30/2019 10:44 documented in this encounter Plan of Treatment Date Type Specialty Care Team Description 09/18/2019 Lab Internal Medicine 09/27/2019 [facility] Ana Maria Victoria MD [address] [place] [address] [phone] Name Type Priority Associated Diagnoses Order Schedule GLYCOHEMOGLOBIN A1C Lab Routine Type 2 diabetes mellitus Expected: without complication, 06/30/2019 without long-term current (Approximate), use of insulin (HCC) Expires: 06/30/2020 RHEUMATOID FACTOR Lab Routine Arthritis Expected: 06/30/2019 (Approximate), Expires: 06/30/2020 ANTI NUCLEAR ANTIBODY Lab Routine Arthritis Expected: 06/30/2019 (Approximate), Expires: 06/30/2020 CYCLIC CITRULLINE PEPTIDE Lab Routine Arthritis Expected: ANTIBODY IGG 06/30/2019 (Approximate), Expires: 06/30/2020 GLYCOHEMOGLOBIN A1C Lab Routine Type 2 diabetes mellitus Expected: without complication, 09/30/2019 without long-term current (Approximate), use of insulin (HCC) Expires: 11/30/2019 COMPREHENSIVE METABOLIC Lab Routine Essential hypertension Expected: PANEL 09/30/2019 (Approximate), Expires: 11/30/2019 LIPID PROFILE Lab Routine Mixed hyperlipidemia Expected: 09/30/2019 (Approximate), Expires: 11/30/2019 MICROALBUMIN, RANDOM URINE Lab Routine Type 2 diabetes mellitus Expected: W/ CREATININE without complication, 06/30/2019 without long-term current (Approximate), use of insulin (HCC) Expires: 12/27/2019 Name Type Priority Associated Diagnoses Order Schedule REFER TO PODIATRY Referral Routine Type 2 diabetes mellitus Expected: 06/30, without complication, Expires: 06/30/2020 without long-term current use of insulin (HCC) Pain in both feet Health Maintenance Due Date Last Done Comments Diabetic Eye Exam 1960 MEDICARE ANNUAL WELLNESS VISIT 1960 FOOT EXAM 01/08/1976 ZOSTER IMMUNIZATION SERIES (1 01/08/2008 of 2) MAMMOGRAM (SCREENING) 04/25/2015 04/25/2014, 04/13/2014, 04/02/2004 HEMOGLOBIN A1C 09/30/2019 03/30/2019, 03/17/2012 DEPRESSION SCREENING 06/30/2020 06/30/2019 LIPID DISORDER SCREENING 06/30/2020 06/30/2019, 03/30/2019, 03/17/2012 COLONOSCOPY SCREENING 03/15/2023 03/15/2013, 03/15/2013 PNEUMOCOCCAL 0-64 YRS Completed 11/27/2018 HPV IMMUNIZATION SERIES Aged Out No longer eligible based on patient's age to complete this topic MENINGOCOCCAL VACCINE IMM Aged Out No longer eligible based on patient's age to complete this topic documented as of this encounter Goals Goal Patient Goal Associated Recent Patient-Stated? Author Type Problems Progress Blood Pressure Blood Pressure 125/80 No Odilon, < 150/90 (06/30/2019 PADMINI Lala 10:35 AM EDT) Note: This is an individualized treatment (blood pressure) goal for Samantha Morris: Displayed above (on the left) is your goal for blood pressure control. Your most recent blood pressure is also shown above, on the right. You should try to achieve blood pressures that are lower than your goal listed above (on the left). Smoking Cessation COPD No Ana Maria Victoria MD Note: This is an individualized treatment (COPD) goal for Samantha Morris: Quit smoking immediately! Your provider has information and resources that may help you to quit. Depression screen (PHQ-9) total score < 5 Depression No Dai Donald FNP Note: This is an individualized treatment (depression) goal for Samantha Morris: Displayed above is your goal for a depression screening (PHQ-9) score that would indicate good control of your depression. Glycohemoglobin A1c < 7.0 Diabetes 6.5 (03/30/2019 10:55 No Ana Maria Victoria AM EDAubrey Power MD Note: This is an individualized treatment (diabetes control, HgbA1C) goal for Samantha Morris: Displayed above is your progress towards your HgbA1C goal. Your goal is shown above (on the left); your most recent HgbA1C is shown on the right. Note that lower numbers are better. Weight loss vs. 18 mo Lifestyle 13 (06/30/2019 9:57 AM No Dai Donald FNP max (lbs) >= 10 EDT) Note: This is an individualized lifestyle goal for Samantha Morris: Your body mass index (BMI) is more than 30. You should lose weight. A reasonable starting goal is to lose 10 pounds. Displayed above is how many pounds you have lost thus far towards your 10 pound weight loss goal. Keep a regular sleep schedule Lifestyle No Dai Donald FNP Note: This is an individualized lifestyle goal for Samantha Morris: Please maintain a regular sleep schedule. This may help with some symptoms of depression. Keep immunizations current Lifestyle No Ana Maria Victoria MD Note: This is an individualized lifestyle goal for Samantha Morris: Please be sure to keep up-to-date on recommended immunizations. For example, this would include a yearly influenza vaccine. Immunization status can be seen by looking at the Health Maintenance sections of your [facility], Plan of Care, and any After Visit Summaries. Take all prescribed medications as Self-management No Dai Donald FNP directed Note: This is an individualized self-management goal for Samantha Morris: Please take all prescribed medications as directed. 1. Do not skip doses. If you cannot afford your medications, talk with your doctor. 2. Use a pill reminder system such as a pill box if needed. Your pharmacist can help you with this. 3. Contact your Pharmacy 5 days before your medication runs out. If you cannot take your medications for any reasons, talk with your doctor. 4. Please bring all of your medication bottles and inhalers (or a list of all your medications/inhalers) with you to every visit. Potential barriers to meeting all of your care plan goals will continue to be addressed on an ongoing basis. documented as of this encounter Results Not on filedocumented in this encounter Visit Diagnoses Diagnosis Essential hypertension - Primary Unspecified essential hypertension Type 2 diabetes mellitus without complication, without long-term current use of insulin (HCC) Chronic pain due to trauma Mixed hyperlipidemia Arthritis Arthropathy, unspecified, site unspecified Pain in both feet Pain in limb Other chronic pain Degenerative disc disease, thoracic Degeneration of thoracic or thoracolumbar intervertebral disc documented in this encounter Insurance Payer Benefit Plan / Subscriber ID Effective Dates Phone Address Type Group [employer] MEDICARE HU[employer]NA MEDICARE xxxxxxxxx 2017-Present [employer]AGE documented as of this encounter
== END 2019-07-31 10:08 | disposition home or self-care (01) ==
LOC: ED 08:59
DX: B37.2 Candidiasis of skin and nail (principal); R59.0 Localized enlarged lymph nodes; I10 Essential (primary) hypertension; J44.9 Chronic obstructive pulmonary disease, unspecified; F17.210 Nicotine dependence, cigarettes, uncomplicated; Z88.1 Allergy status to other antibiotic agents; Z88.0 Allergy status to penicillin
CPT/HCPCS: 99282